=== PATIENT | female | born 1990 | race African-American/Black ===

== ENCOUNTER 2016-10-23 11:07 | Emergency (ER) | payer OTHER ==
[2016-10-23 11:09] VITALS: BP 210/102; PULSE 90; RESP 13; TEMP 98.3; O2SAT 100
--- NOTE | 2016-10-23 11:14 | PD ---
Physical Exam Date Seen by Provider: Oct 23, 2016 Time Seen by Provider: 11:10 MDM Supervised Visit with TERESA: No Narrative Course 26 YO F with complaint of abdominal pain, N/V x 5 days. States took UPT at home, negative. LMP 09/16 Vitals reviewed. Patient seen in triage, awaiting bed placement. Cheyenne Rodriguez Oct 23, 2016 11:14
--- NOTE | 2016-10-23 12:15 | PD ---
HPI Chief Complaint: GI Complaint Time Seen by Provider: 12:05 Travel History International Travel<30 days: No Contact w/Intl Traveler<30days: No Traveled to known affect area: No History of Present Illness HPI 26-year-old female complains of nausea vomiting and diarrhea. Patient states that symptoms started 4 days ago. Patient denies any headache. Patient denies any coughing congestion. Patient denies any chest pain or shortness of breath. Patient denies abdominal pain. Patient denies any dysuria or frequency. Patient denies any vaginal discharge or bleeding. Patient states that she is late for her menstruation period this month. Last menstruation period was September 16, 2016. Patient denies any fever chills. PFSH Past Medical History Diabetes: Yes ?: Unknown LMP: 09/16/16 Social History Tobacco Use: No Allergies-Medications (Allergen,Severity, Reaction): Coded Allergies: No Known Allergies (Unverified , 10/23/16) Reported Meds & Prescriptions Reported Meds & Active Scripts Active Phenergan (Promethazine HCl) 25 Mg Tablet 25 Mg PO Q6H PRN Amlodipine (Amlodipine Besylate) 10 Mg Tab 10 Mg PO DAILY Reported Novolog Inj (Insulin Aspart) 1,000 Unit/10 Ml Vial 0 SQ DIRECTED Sliding Scale as directed. Levemir Inj (Insulin Detemir) 1,000 unit/ 10 ML Vial 30 Units SQ BID Do not mix with any other Insulin. Review of Systems General / Constitutional: No: Fever Eyes: No: Visual changes HENT: No: Headaches Cardiovascular: No: Chest Pain or Discomfort Respiratory: No: Shortness of Breath Gastrointestinal: Positive: Nausea, Vomiting, Diarrhea, No: Abdominal Pain Genitourinary: No: Dysuria Musculoskeletal: No: Pain Skin: No Rash Neurologic: No: Weakness Psychiatric: No: Depression Endocrine: No: Polydipsia Hematologic/Lymphatic: No: Easy Bruising Physical Exam Narrative GENERAL: Well-nourished, well-developed patient. SKIN: Focused skin assessment warm/dry. HEAD: Normocephalic. EYES: No scleral icterus. No injection or drainage. NECK: Supple, trachea midline. No JVD or lymphadenopathy. CARDIOVASCULAR: Regular rate and rhythm without murmurs, gallops, or rubs. RESPIRATORY: Breath sounds equal bilaterally. No accessory muscle use. GASTROINTESTINAL: Abdomen soft, non-tender, nondistended. MUSCULOSKELETAL: No cyanosis, or edema. BACK: Nontender without obvious deformity. No CVA tenderness. Neurologic exam normal. Data Data Last Documented VS Vital Signs Date Time Temp Pulse Resp B/P Pulse Ox O2 Delivery O2 Flow Rate FiO2 10/23/16 17:47 65 16 190/82 100 10/23/16 17:24 Room Air 10/23/16 11:09 98.3 Orders Complete Blood Count With Diff (10/23/16 12:11) Comprehensive Metabolic Panel (10/23/16 12:11) Urinalysis - C+S If Indicated (10/23/16 12:11) Beta Hcg (Quant/Titer) (10/23/16 12:11) Ecg Monitoring (10/23/16 12:11) Iv Access Insert/Monitor (10/23/16 12:11) Sodium Chlor 0.9% 1000 Ml Inj (Ns 1000 M (10/23/16 12:30) Ondansetron Inj (Zofran Inj) (10/23/16 12:30) Sodium Chlor 0.9% 1000 Ml Inj (Ns 1000 M (10/23/16 14:15) Ct Abd/Pel W/O Iv Contrast (10/23/16 14:12) Sodium Chlor 0.9% 1000 Ml Inj (Ns 1000 M (10/23/16 14:15) Clonidine (Catapres) (10/23/16 14:30) Urine Culture (10/23/16 13:45) Sodium Chlor 0.9% 1000 Ml Inj (Ns 1000 M (10/23/16 15:15) Hydralazine Inj (Apresoline Inj) (10/23/16 16:45) Labs Laboratory Tests Test 10/23/16 10/23/16 10/23/16 12:28 13:02 13:45 White Blood Count 8.5 TH/MM3 Red Blood Count 3.79 MIL/MM3 Hemoglobin 11.2 GM/DL Hematocrit 33.2 % Mean Corpuscular Volume 87.7 FL Mean Corpuscular Hemoglobin 29.5 PG Mean Corpuscular Hemoglobin 33.6 % Concent Red Cell Distribution Width 13.9 % Platelet Count 339 TH/MM3 Mean Platelet Volume 8.6 FL Neutrophils (%) (Auto) 55.9 % Lymphocytes (%) (Auto) 37.0 % Monocytes (%) (Auto) 4.0 % Eosinophils (%) (Auto) 2.0 % Basophils (%) (Auto) 1.1 % Neutrophils # (Auto) 4.7 TH/MM3 Lymphocytes # (Auto) 3.1 TH/MM3 Monocytes # (Auto) 0.3 TH/MM3 Eosinophils # (Auto) 0.2 TH/MM3 Basophils # (Auto) 0.1 TH/MM3 CBC Comment DIFF FINAL Differential Comment Sodium Level 139 MEQ/L Potassium Level 4.3 MEQ/L Chloride Level 108 MEQ/L Carbon Dioxide Level 24.0 MEQ/L Anion Gap 7 MEQ/L Blood Urea Nitrogen 41 MG/DL Creatinine 5.37 MG/DL Estimat Glomerular Filtration 12 ML/MIN Rate Random Glucose 145 MG/DL Calcium Level 8.5 MG/DL Total Bilirubin 0.1 MG/DL Aspartate Amino Transf 9 U/L (AST/SGOT) Alanine Aminotransferase 11 U/L (ALT/SGPT) Alkaline Phosphatase 111 U/L Total Protein 6.4 GM/DL Albumin 1.7 GM/DL Human Chorionic Gonadotropin, 1 MIU/ML Quant Urine Color LIGHT-YELLOW Urine Turbidity CLEAR Urine pH 7.5 Urine Specific [place] 1.010 Urine Protein 300 mg/dL Urine Glucose (UA) 300 mg/dL Urine Ketones NEG mg/dL Urine Occult Blood MOD Urine Nitrite NEG Urine Bilirubin NEG Urine Urobilinogen LESS THAN 2.0 MG/DL Urine Leukocyte Esterase NEG Urine RBC 14 /hpf Urine WBC 11 /hpf Urine Squamous Epithelial 3 /hpf Cells Urine Mucus FEW /lpf Microscopic Urinalysis Comment CULTURE INDICATED MDM Medical Decision Making Medical Screen Exam Complete: Yes Emergency Medical Condition: Yes Interpretation(s) Last Impressions Abdomen/Pelvis CT 10/23/16 1412 Signed Impressions: Service Date/Time: Friday, October 23, 2016 15:35 - CONCLUSION: Increased density surrounding the pancreas raising the possibility of pancreatitis. Ulises Becker MD Differential Diagnosis Differential diagnosis including gastroenteritis, dehydration, electrolyte imbalance, gastritis, PUD, appendicitis, cholecystitis, colitis, UTI, pyelonephritis. Narrative Course 26-year-old female with nausea vomiting diarrhea. Normal saline solution 1 L IV bolus. Zofran 4 mg IV. Patient was given normal saline solution 2 more liter IV bolus. Patient was advised to be admitted for IV hydration and workup. Patient refuses admission. CT scan abdomen pelvis shows possibility of an otitis however patient does not have any epigastric or abdominal pain. Clonidine 0.1 mg by mouth given. Hydralazine 10 mg IV given. Diagnosis Primary Impression: Acute renal failure Qualified Code: N17.9 - Acute renal failure, unspecified acute renal failure type Additional Impressions: Gastroenteritis Hypertension Qualified Code: I10 - Essential hypertension Patient Instructions: General Instructions Additional Instructions: Take medications as directed. Follow-up with local physician. Return immediately if patient wishes to be admitted for medical problem. Check blood pressure daily. Scripts Promethazine (Phenergan)25 Mg Ximsan97 Mg PO Q6H PRN (NAUSEA OR VOMITING) #12 TAB Ref 0 Prov:Obi Hayes MD 10/23/16 Amlodipine 10 Mg Tab10 Mg PO DAILY #30 TAB Ref 0 Prov:Obi Hayes MD 10/23/16 Disposition: 01 DISCHARGE HOME Condition: Stable Obi Hayes MD Oct 23, 2016 12:15
[2016-10-23] MEDS ORDERED: LEVEMIR SQ (12:18)
[2016-10-23] MEDS ORDERED: NOVOLOGP2 SQ (12:20)
[2016-10-23] MEDS ORDERED: SODIUM CHLOR 0.9% 1000 ML INJ 1,000 ML IV ONE ×3 (12:30→15:15)
[2016-10-23] MEDS ORDERED: ONDANSETRON HCL 4 MG/2 ML VIAL IV PUSH ONE (12:30)
[2016-10-23 12:48] LABS: AUTOMATED NEUTROPHIL # 4.7 TH/MM3 (1.8-7.7); BASOPHIL # 0.1 TH/MM3 (0-0.2); BASOPHIL % 1.1 % (0.0-2.0); EOSINOPHIL # 0.2 TH/MM3 (0-0.4); HEMATOCRIT 33.2 % (35.0-46.0); HEMO FLAGS DIFF FINAL; LYMPHOCYTE # 3.1 TH/MM3 (1.0-4.8); MEAN CELL VOLUME 87.7 FL (80.0-100.0); MEAN CORPUSCULAR HEMOGLOBIN 29.5 PG (27.0-34.0); MEAN CORPUSCULAR HGB CONC 33.6 % (32.0-36.0); NEUT % 55.9 % (16.0-70.0); PLATELET COUNT 339 TH/MM3 (150-450); RED BLOOD COUNT 3.79 MIL/MM3 (4.00-5.30); RED CELL DISTRIBUTION WIDTH 13.9 % (11.6-17.2); WHITE BLOOD COUNT 8.5 TH/MM3 (4.0-11.0)
[2016-10-23 13:14] VITALS: BP 208/108; PULSE 65; RESP 15; O2SAT 100
[2016-10-23 13:41] LABS: ALT (GPT) 11 U/L (10-53); ANION GAP 7 MEQ/L (5-15); AST (GOT) 9 U/L (15-37); BLOOD UREA NITROGEN 41 MG/DL (7-18); CHLORIDE 108 MEQ/L (98-107); GLOMERULAR FILTRATION RATE 12 ML/MIN (>89); POTASSIUM 4.3 MEQ/L (3.5-5.1); SODIUM (NA) 139 MEQ/L (136-145)
[2016-10-23 13:44] LABS: ALKALINE PHOSPHATASE 111 U/L (45-117); BETA HCG QUANT 1 MIU/ML (0-5); TOTAL BILIRUBIN ADULT 0.1 MG/DL (0.2-1.0)
[2016-10-23] MEDS: SODIUM CHLOR 0.9% 1000 ML INJ 1,000 ML IV ONE (14:15)
[2016-10-23 14:25] VITALS: BP 212/107; PULSE 80; RESP 15; O2SAT 98
[2016-10-23 14:30] LABS: BLOOD, URINE MOD (NEG); COMMENT (UR) CULTURE INDICATED; CULTURE IF INDICATED CULTURE INDICATED; GLUCOSE,URINE 300 mg/dL (NEG); KETONE, URINE NEG (NEG); MUCUS URINE FEW /lpf (OCC); NITRITE,URINE NEG (NEG); PH, URINE 7.5 (5.0-8.5); SQUAMOUS EPITHELIAL CELL URINE 3 /hpf (0-5); URINE COLOR LIGHT-YELLOW (YELLW/STRAW)
[2016-10-23] MEDS ORDERED: cloNIDine HCL 0.1 MG TAB PO ONE (14:30)
--- NOTE | 2016-10-23 16:29 | RADRPT ---
EXAM DATE/TIME: 10/23/2016 15:35 [facility] COMPARISON: No previous studies available for comparison. INDICATIONS : Abdominal pain with nausea, vomiting, and diarrhea. ORAL CONTRAST: No oral contrast ingested. RADIATION DOSE: 7.98 CTDIvol (mGy) MEDICAL HISTORY : Acute renal failure, diabetes SURGICAL HISTORY : None. ENCOUNTER: Initial ACUITY: 4 - 6 days PAIN SCALE: 8/10 LOCATION: back TECHNIQUE: Volumetric scanning of the abdomen and pelvis was performed. Using automated exposure control and ad justment of the mA and/or kV according to patient size, radiation dose was kept as low as reasonably achievable to obtain optimal diagnostic quality images. FINDINGS: LOWER LUNGS: The visualized lower lungs are clear. LIVER: Homogeneous density without lesion. There is no dilation of the biliary tree. No calcified gallston es. SPLEEN: Normal size without lesion. PANCREAS: There is increased density surrounding the pancreas. KIDNEYS: Normal in size and shape. There is no mass, stone, or hydronephrosis. ADRENAL GLANDS: Within normal limits. VASCULAR: There is no aortic aneurysm. BOWEL/MESENTERY: The stomach, small bowel, and colon demonstrate no acute abnormality. There is no free intraperitone al air or fluid. ABDOMINAL WALL: Within normal limits. RETROPERITONEUM: There is no lymphadenopathy. BLADDER: No wall thickening or mass. REPRODUCTIVE: Within normal limits. INGUINAL: There is no lymphadenopathy or hernia. MUSCULOSKELETAL: Within normal limits for patient age. CONCLUSION: Increased density surrounding the pancreas raising the possibility of pancreatitis. Ulises Becker MD on October 23, 2016 at 16:23 Board Certified Radiologist. This report was verified electronically.
[2016-10-23] MEDS ORDERED: hydrALAZINE HCL 20 MG/ML VIAL IV PUSH ONE (16:45)
[2016-10-23] MEDS ORDERED: AMLO10TA2 PO (16:49)
[2016-10-23] MEDS ORDERED: PROM25TA10 PO (16:49)
[2016-10-23 16:57] VITALS: BP 217/103; PULSE 84; RESP 15; O2SAT 100
[2016-10-23 17:24] VITALS: BP 206/103; PULSE 80; RESP 16; O2SAT 100
[2016-10-23 17:47] VITALS: BP 190/82
== END 2016-10-23 17:58 | disposition left against medical advice (07) ==
LOC: NEPD 11:07
DX: N17.9 Acute kidney failure, unspecified (principal); K52.9 Noninfective gastroenteritis and colitis, unspecified; I10 Essential (primary) hypertension; E11.9 Type 2 diabetes mellitus without complications; Z79.4 Long term (current) use of insulin; Z79.899 Other long term (current) drug therapy
CPT/HCPCS: 74176; 80053; 81001; 84702; 85025; 87086; 96361; 96374; 96375; 99285; J0360; J2405; J7030

== ENCOUNTER 2016-11-26 16:31 | Inpatient (IN) | payer OTHER ==
[~2016-11-26] VITALS: Ht 157.5 cm; Wt 59.8 kg
[~2016-11-26 16:31] MED LIST: AMLO10TA2 PO; LEVEMIR SQ; NOVOLOGP2 SQ; PROM25TA10 PO
[2016-11-26 16:33] VITALS: BP 131/72; PULSE 94; RESP 15; TEMP 98.2; O2SAT 98
[2016-11-26 17:55] LABS: BASOPHIL # 0.1 TH/MM3 (0-0.2); EOSINOPHIL # 0.2 TH/MM3 (0-0.4); HEMATOCRIT 22.3 % (35.0-46.0); HEMO FLAGS DIFF FINAL; LYMPH % 35.4 % (9.0-44.0); LYMPHOCYTE # 3.7 TH/MM3 (1.0-4.8); MEAN CELL VOLUME 88.7 FL (80.0-100.0); MEAN CORPUSCULAR HGB CONC 34.9 % (32.0-36.0); MONO % 4.8 % (0.0-8.0); NEUT % 56.8 % (16.0-70.0); PLATELET COUNT 338 TH/MM3 (150-450); RED BLOOD COUNT 2.52 MIL/MM3 (4.00-5.30); RED CELL DISTRIBUTION WIDTH 14.1 % (11.6-17.2); WHITE BLOOD COUNT 10.6 TH/MM3 (4.0-11.0)
[2016-11-26 17:58] LABS: ALT (GPT) 15 U/L (10-53); ANION GAP 9 MEQ/L (5-15); AST (GOT) 11 U/L (15-37); BICARBONATE 18.1 MEQ/L (21.0-32.0); BLOOD UREA NITROGEN 39 MG/DL (7-18); CHLORIDE 110 MEQ/L (98-107); GLOMERULAR FILTRATION RATE 10 ML/MIN (>89); POTASSIUM 5.7 MEQ/L (3.5-5.1); SODIUM (NA) 137 MEQ/L (136-145)
[2016-11-26 18:01] LABS: ALKALINE PHOSPHATASE 129 U/L (45-117); TOTAL BILIRUBIN ADULT 0.1 MG/DL (0.2-1.0)
[2016-11-26] MEDS ORDERED: LISI10TA3 PO (20:21)
[2016-11-26] MEDS ORDERED: CIPR250T52 PO (20:22)
[2016-11-26] MEDS ORDERED: FURO20TA PO (20:22)
--- NOTE | 2016-11-26 20:23 | PD ---
HPI Chief Complaint: Abnormal Results Time Seen by Provider: 20:19 Travel History International Travel<30 days: No Contact w/Intl Traveler<30days: No Traveled to known affect area: No History of Present Illness HPI The patient is a 26-year-old [place] female who presents emergency department for abnormal lab results. 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 The patient has been followed by her nurse practitioner, Lindy Eugene , and a recently had blood work revealing her creatinine is elevated, now greater than 6.0. The patient does complain of myalgias, weakness, nausea, vomiting, decrease in appetite, and edema. The patient was taken lisinopril and Lasix, however, her edema and elevated blood pressure has continued. The patient was advised to come into the emergency department for admission for further evaluation by nephrology for her acute renal failure. The patient denies any acute chest pain or shortness of breath. The patient states her last menstrual cycle was September 16, 2016, however, she had an outpatient serum beta hCG that was -2 days ago. PFSH Past Medical History Diabetes: Yes ?: Not Past Surgical History Narrative Surgical Noncontributory Social History Alcohol Use: No Tobacco Use: No Substance Use: No Allergies-Medications (Allergen,Severity, Reaction): Coded Allergies: No Known Allergies (Unverified , 11/26/16) Reported Meds & Prescriptions Reported Meds & Active Scripts Active Phenergan (Promethazine HCl) 25 Mg Tablet 25 Mg PO Q6H PRN Amlodipine (Amlodipine Besylate) 10 Mg Tab 10 Mg PO DAILY Reported Cipro (Ciprofloxacin HCl) 250 Mg Tab 250 Mg PO BID Furosemide 20 Mg Tab 20 Mg PO DAILY Lisinopril 10 Mg Tab 10 Mg PO DAILY Novolog Inj (Insulin Aspart) 1,000 Unit/10 Ml Vial 0 SQ DIRECTED Sliding Scale as directed. Levemir Inj (Insulin Detemir) 1,000 unit/ 10 ML Vial 30 Units SQ BID Do not mix with any other Insulin. Review of Systems Except as stated in HPI: all other systems reviewed are Neg General / Constitutional: No: Fever Cardiovascular: No: Chest Pain or Discomfort Respiratory: No: Shortness of Breath Gastrointestinal: Positive: Nausea, Vomiting, No: Diarrhea, Abdominal Pain Musculoskeletal: Positive: Myalgias, Weakness, Edema Neurologic: Positive: Weakness, No: Dizziness Physical Exam Narrative GENERAL: Awake, alert, pleasant 26-year-old female who appears her stated age and is in no acute respiratory distress. SKIN: Focused skin assessment warm/dry. HEAD: Atraumatic. Normocephalic. EYES: Pupils equal and round. No scleral icterus. No injection or drainage. ENT: No nasal bleeding or discharge. Mucous membranes pink and moist. NECK: Trachea midline. No JVD. CARDIOVASCULAR: Regular rate and rhythm. Holosystolic murmur noted. RESPIRATORY: No accessory muscle use. Clear to auscultation. Breath sounds equal bilaterally. GASTROINTESTINAL: Abdomen soft, non-tender, nondistended. No rebound tenderness. MUSCULOSKELETAL: No obvious deformities. No clubbing. No cyanosis. Bilateral lower extremity pitting edema. NEUROLOGICAL: Awake and alert. No obvious cranial nerve deficits. Motor grossly within normal limits. Normal speech. PSYCHIATRIC: Appropriate mood and affect; insight and judgment normal. Data Data Last Documented VS Vital Signs Date Time Temp Pulse Resp B/P Pulse Ox O2 Delivery O2 Flow Rate FiO2 11/26/16 20:35 96 18 217/105 100 Room Air 11/26/16 16:33 98.2 Orders Complete Blood Count With Diff (11/26/16 17:08) Comprehensive Metabolic Panel (11/26/16 17:08) Sodium Polysty Sulfate Liq (Kayexalate L (11/26/16 20:30) Electrocardiogram (11/26/16 ) Us Kidney/Renal/Bladder (11/26/16 ) Labs Laboratory Tests Test 11/26/16 17:20 White Blood Count 10.6 TH/MM3 Red Blood Count 2.52 MIL/MM3 Hemoglobin 7.8 GM/DL Hematocrit 22.3 % Mean Corpuscular Volume 88.7 FL Mean Corpuscular Hemoglobin 31.0 PG Mean Corpuscular Hemoglobin 34.9 % Concent Red Cell Distribution Width 14.1 % Platelet Count 338 TH/MM3 Mean Platelet Volume 8.0 FL Neutrophils (%) (Auto) 56.8 % Lymphocytes (%) (Auto) 35.4 % Monocytes (%) (Auto) 4.8 % Eosinophils (%) (Auto) 2.0 % Basophils (%) (Auto) 1.0 % Neutrophils # (Auto) 6.0 TH/MM3 Lymphocytes # (Auto) 3.7 TH/MM3 Monocytes # (Auto) 0.5 TH/MM3 Eosinophils # (Auto) 0.2 TH/MM3 Basophils # (Auto) 0.1 TH/MM3 CBC Comment DIFF FINAL Differential Comment Sodium Level 137 MEQ/L Potassium Level 5.7 MEQ/L Chloride Level 110 MEQ/L Carbon Dioxide Level 18.1 MEQ/L Anion Gap 9 MEQ/L Blood Urea Nitrogen 39 MG/DL Creatinine 6.34 MG/DL Estimat Glomerular Filtration 10 ML/MIN Rate Random Glucose 105 MG/DL Calcium Level 8.6 MG/DL Total Bilirubin 0.1 MG/DL Aspartate Amino Transf 11 U/L (AST/SGOT) Alanine Aminotransferase 15 U/L (ALT/SGPT) Alkaline Phosphatase 129 U/L Total Protein 7.1 GM/DL Albumin 2.1 GM/DL [facility] Medical Decision Making Medical Screen Exam Complete: Yes Emergency Medical Condition: Yes Medical Record Reviewed: Yes Interpretation(s) EKG reveals normal sinus rhythm with a rate in 94. No ischemic changes or ectopy noted. QRS was 81 ms. No peaked T waves noted. Laboratory Tests Test 11/26/16 17:20 White Blood Count 10.6 TH/MM3 Red Blood Count 2.52 MIL/MM3 Hemoglobin 7.8 GM/DL Hematocrit 22.3 % Mean Corpuscular Volume 88.7 FL Mean Corpuscular Hemoglobin 31.0 PG Mean Corpuscular Hemoglobin 34.9 % Concent Red Cell Distribution Width 14.1 % Platelet Count 338 TH/MM3 Mean Platelet Volume 8.0 FL Neutrophils (%) (Auto) 56.8 % Lymphocytes (%) (Auto) 35.4 % Monocytes (%) (Auto) 4.8 % Eosinophils (%) (Auto) 2.0 % Basophils (%) (Auto) 1.0 % Neutrophils # (Auto) 6.0 TH/MM3 Lymphocytes # (Auto) 3.7 TH/MM3 Monocytes # (Auto) 0.5 TH/MM3 Eosinophils # (Auto) 0.2 TH/MM3 Basophils # (Auto) 0.1 TH/MM3 CBC Comment DIFF FINAL Differential Comment Sodium Level 137 MEQ/L Potassium Level 5.7 MEQ/L Chloride Level 110 MEQ/L Carbon Dioxide Level 18.1 MEQ/L Anion Gap 9 MEQ/L Blood Urea Nitrogen 39 MG/DL Creatinine 6.34 MG/DL Estimat Glomerular Filtration 10 ML/MIN Rate Random Glucose 105 MG/DL Calcium Level 8.6 MG/DL Total Bilirubin 0.1 MG/DL Aspartate Amino Transf 11 U/L (AST/SGOT) Alanine Aminotransferase 15 U/L (ALT/SGPT) Alkaline Phosphatase 129 U/L Total Protein 7.1 GM/DL Albumin 2.1 GM/DL Differential Diagnosis Differential diagnosis includes acute renal failure, complication of type 1 diabetes, hyperkalemia, volume overload, peripheral edema. Narrative Course IV was established, labs are drawn and sent, and the patient was placed on cardiac telemetry monitoring and continuous pulse oximetry monitoring. EKG was ordered and interpreted. The patient does continue to make urine, however, her creatinine is elevated greater than 6.0 with elevated potassium of 5.7. The patient was administered Kayexalate. The on-call medical team was paged for admission. The patient will need admission and evaluation by nephrology with ultrasound of the kidneys. The patient agrees and understands. Physician Communication Physician Communication The on-call medical team was paged for admission. I discussed the patient with Dr. Cerrato who agrees with admission. Diagnosis Primary Impression: Acute renal failure Qualified Code: N17.9 - Acute renal failure, unspecified acute renal failure type Additional Impression: Hyperkalemia Admitting Information Admitting Physician Requests: Admit Condition: Stable Emil Padilla MD Nov 26, 2016 20:23
[2016-11-26] MEDS ORDERED: SODIUM POLYSTYRENE SULFONATE SUSP 15 GM/60 ML CUP PO ONE (20:30)
[2016-11-26 20:35] VITALS: BP 217/105; PULSE 96; RESP 18; O2SAT 100
[2016-11-26] MEDS ORDERED: SODIUM CHLORIDE 0.9% FLUSH 10 ML FLUSH IV FLUSH PRN (21:00)
[2016-11-26] MEDS ORDERED: NALOXONE HCL 0.4 MG/ML AMP IV PRN (21:00)
[2016-11-26] MEDS: SODIUM CHLORIDE 0.9% FLUSH 10 ML FLUSH IV FLUSH SCH (21:15)
[2016-11-26 21:25] VITALS: BP 196/103; PULSE 99; RESP 18; O2SAT 98
[2016-11-26 21:31] VITALS: BP 178/99; PULSE 97; RESP 18; O2SAT 98
--- NOTE | 2016-11-26 21:39 | RADRPT ---
EXAM DATE/TIME: 11/26/2016 21:09 [facility] COMPARISON: No previous studies available for comparison. INDICATIONS : Abnormal labs. MEDICAL HISTORY : Hypertension. Diabetes mellitus type 1. Renal disease. SURGICAL HISTORY : None. ENCOUNTER: Initial ACUITY: 1 day PAIN SCORE: 0/10 LOCATION: Bilateral flank. MEASUREMENTS: RIGHT KIDNEY: 13.7 x 5.5 x 5.8 cm LEFT KIDNEY: 13.2 x 6.5 x 6.0 cm FINDINGS: RIGHT KIDNEY: Renal cortex is normal in thickness and borderline increased echotexture. No hydronephrosis, stone, or mass. Tiny simple cyst upper pole measures 9 x 7 x 7 mm. LEFT KIDNEY: Renal cortex is normal in thickness and borderline increased echotexture. No hydronephrosis, stone, or mass. BLADDER: Within normal limits given the degree of distension. CONCLUSION: 1. Tiny cysts right kidney. 2. Kidneys are borderline echogenic which can be seen with medical renal disease. Seng Peña MD on November 26, 2016 at 21:36 Board Certified Radiologist. This report was verified electronically.
[2016-11-26] MEDS ORDERED: LABETALOL HCL 100 MG/20 ML VIAL IV PUSH ONE (21:45)
[2016-11-26 21:47] VITALS: BP 168/92; PULSE 90; RESP 16; O2SAT 98
[2016-11-26 22:30] VITALS: BP 198/98; PULSE 100; RESP 18; TEMP 98.5; O2SAT 100
[2016-11-27] VITALS (11 sets, daily range): BP systolic 172–212; BP diastolic 86–106; PULSE 90–104; RESP 14–20; TEMP 97.6–98.9; O2SAT 93–100
[2016-11-27 00:29] LABS: BICARBONATE 22.1 MEQ/L (21.0-32.0); POTASSIUM 5.1 MEQ/L (3.5-5.1)
[2016-11-27] MEDS ORDERED: cloNIDine HCL 0.1 MG TAB PO ONE (00:30)
[2016-11-27] MEDS ORDERED: ALPRAZolam 0.25 MG TAB PO ONE (00:30)
[2016-11-27] MEDS ORDERED: ALPRAZolam 0.5 MG TAB PO ONE (01:00)
[2016-11-27] MEDS ORDERED: PILL SPLITTER OTHER ONE (01:00)
--- NOTE | 2016-11-27 03:05 | HHI.HP ---
HPI Service [facility] Hospitalists Primary Care Physician Vu Manley DO Admission Diagnosis acute renal failure, hyperkalemia, diabetes Diagnoses: (1) Acute renal failure Chief Complaint: Abnormal lab tests Travel History International Travel<30 Days: No Contact w/Intl Traveler <30 Da: No Traveled to Known Affected Are: No History of Present Illness Written by Rama Barnett, acting as scribe for Dr. Cerrato on 11/27/16 at 03:24. Sent from PCP to ED because of "abnormal blood work" March 2016 was told at [facility] in [facility] that she had renal failure They mentioned doing a renal biopsy in March 2016 but it was never done Denies fever, diarrhea, black or red stool, hematuria, dysuria, oliguria, abdominal pain Complains of nausea, vomiting, diaphoresis with eating any foods, for the last two weeks, reports drowsiness No close contacts with nausea or vomiting She has not been on bp medications for about two weeks Was on amlodipine, furosemide, and lisinopril Reports that she has been put on transplant list by her primary care provider DANE Núñez . Review of Systems Except as stated in HPI: all other systems reviewed are Neg Past Family Social History Past Medical History Type 1 diabetes mellitus Seizures r/t hypoglycemia CAD, CHF, asthma, copd, liver problems, DVT, PE, CVA, thyroid problems . Past Surgical History Breast cyst - needle aspiration . Reported Medications Has been on Ciprofloxacin for a few days Reported Meds & Active Scripts Active Phenergan (Promethazine HCl) 25 Mg Tablet 25 Mg PO Q6H PRN Amlodipine (Amlodipine Besylate) 10 Mg Tab 10 Mg PO DAILY Reported Cipro (Ciprofloxacin HCl) 250 Mg Tab 250 Mg PO BID Furosemide 20 Mg Tab 20 Mg PO DAILY - last dose was two nights ago - was given Furosemide about a week and a half ago Lisinopril 10 Mg Tab 10 Mg PO DAILY Novolog Inj (Insulin Aspart) 1,000 Unit/10 Ml Vial 0 SQ DIRECTED Sliding Scale as directed. Levemir Inj (Insulin Detemir) 1,000 unit/ 10 ML Vial 30 Units SQ BID Do not mix with any other Insulin. . Allergies: Coded Allergies: No Known Allergies (Unverified , 11/26/16) Active Ordered Medications Current Medications Sodium Polystyrene Sulfonate (Kayexalate Liq) 30 gm ONCE ONCE PO Last administered on 11/26/16 20:35; Start 11/26/16 at 20:30; Stop 11/26/16 at 20:31 ; Status DC Sodium Chloride (NS Flush) 2 ml UNSCH PRN IV FLUSH FLUSH AFTER USING IV ACCESS ; Start 11/26/16 at 21:00 Sodium Chloride (NS Flush) 2 ml BID IV FLUSH Last administered on 11/26/16 21: 15; Start 11/26/16 at 21:00 Naloxone HCl (Narcan Inj) 0.4 mg UNSCH PRN IV SEE LABEL COMMENTS; Start at 21:00 Labetalol HCl (Trandate Inj) 20 mg ONCE ONCE IV PUSH Last administered on 11/26 21:36; Start 11/26/16 at 21:45; Stop 11/26/16 at 21:46; Status DC Clonidine (Catapres) 0.1 mg ONCE ONCE PO Last administered on 11/27/16 01:13 ; Start 11/27/16 at 00:30; Stop 11/27/16 at 00:33; Status DC Alprazolam (Xanax) 0.125 mg ONCE ONCE PO ; Start 11/27/16 at 00:30; Stop at 00:31; Status Cancel Alprazolam (Xanax) 0.125 mg ONCE ONCE PO Last administered on 11/27/16 01:13 ; Start 11/27/16 at 01:00; Stop 11/27/16 at 01:01; Status DC Miscellaneous (Pill Splitter) 1 ea ONCE ONCE OTHER ; Start 11/27/16 at 01:00; Stop 11/27/16 at 01:01; Status DC . Family History Aunt with pancreatic CA Aunt with PE Mother with DVT, thyroid nodules Great grandmother with ESRD . Social History Tobacco: denies Alcohol: denies Illicit drugs: denies . Physical Exam Vital Signs Vital Signs Date Time Temp Pulse Resp B/P Pulse Ox O2 Delivery O2 Flow Rate FiO2 11/27/16 02:51 97.6 102 18 176/86 100 11/27/16 00:05 98.2 104 17 207/105 100 11/26/16 22:30 98.5 100 18 198/98 100 11/26/16 21:47 90 16 168/92 98 Room Air 11/26/16 21:31 97 18 178/99 98 Room Air 11/26/16 21:25 99 18 196/103 98 Room Air 11/26/16 20:35 96 18 217/105 100 Room Air 11/26/16 16:33 98.2 94 15 131/72 98 Physical Exam GENERAL: This is a well-nourished, well-developed patient, in no apparent distress. SKIN: No rashes, ecchymoses or lesions. Cool and dry. HEAD: Atraumatic. Normocephalic. EYES: No scleral icterus. No injection or drainage. ENT: Nose without bleeding, purulent drainage. NECK: Trachea midline. No JVD or lymphadenopathy. CARDIOVASCULAR: Regular rate and rhythm without murmurs, gallops, or rubs. 1+ lower extremity edema from mid-madden to feet bilaterally. RESPIRATORY: Clear to auscultation. Breath sounds equal bilaterally. No wheezes , rales, or rhonchi. GASTROINTESTINAL: Abdomen soft, non-tender, nondistended. No guarding. MUSCULOSKELETAL: Extremities without clubbing, cyanosis, or edema. No calf tenderness. NEUROLOGICAL: Awake and alert. Motor and sensory grossly within normal limits. Normal speech. . Laboratory Laboratory Tests Test 11/26/16 11/26/16 17:20 23:34 White Blood Count 10.6 Red Blood Count 2.52 Hemoglobin 7.8 Hematocrit 22.3 Mean Corpuscular Volume 88.7 Mean Corpuscular Hemoglobin 31.0 Mean Corpuscular Hemoglobin 34.9 Concent Red Cell Distribution Width 14.1 Platelet Count 338 Mean Platelet Volume 8.0 Neutrophils (%) (Auto) 56.8 Lymphocytes (%) (Auto) 35.4 Monocytes (%) (Auto) 4.8 Eosinophils (%) (Auto) 2.0 Basophils (%) (Auto) 1.0 Neutrophils # (Auto) 6.0 Lymphocytes # (Auto) 3.7 Monocytes # (Auto) 0.5 Eosinophils # (Auto) 0.2 Basophils # (Auto) 0.1 CBC Comment DIFF FINAL Differential Comment Sodium Level 137 138 Potassium Level 5.7 5.1 Chloride Level 110 109 Carbon Dioxide Level 18.1 22.1 Anion Gap 9 7 Blood Urea Nitrogen 39 45 Creatinine 6.34 6.37 Estimat Glomerular Filtration 10 10 Rate Random Glucose 105 345 Calcium Level 8.6 7.9 Total Bilirubin 0.1 Aspartate Amino Transf 11 (AST/SGOT) Alanine Aminotransferase 15 (ALT/SGPT) Alkaline Phosphatase 129 Total Protein 7.1 Albumin 2.1 Result Diagram: 11/26/16 1720 11/26/16 2334 Imaging Last Impressions Renal Ultrasound 11/26/16 0000 Signed Impressions: Service Date/Time: Saturday, November 26, 2016 21:09 - CONCLUSION: 1. Tiny cysts right kidney. 2. Kidneys are borderline echogenic which can be seen with medical renal disease. Seng Peña MD . Assessment and Plan Problem List: (1) Acute renal failure ICD Code: N17.9 Status: Acute Assessment and Plan 26 y/o female with acute renal failure Acute Renal Failure - Kidney ultrasound showed tiny cysts right kidney. Kidneys are borderline echogenic which can be seen with medical renal disease. - We will need to obtain medical records from [facility] in [place] from March 2016 admission - Will need to obtain records from DANE Núñez - patient's primary healthcare provider re hepatitis profile, hiv testing, hypercoagulable state profile, pheochromo etc - IV fluid hydration with NS at 84 cc/hr - repeat BMP and follow trends in renal indices - consult nephrology - assistance appreciated Type 1 diabetes mellitus - Accu-Cheks before meals and at bedtime with medium dose NovoLog sliding scale coverage - Monitor trends and blood glucose and adjust treatment as indicated - Hypoglycemia protocol DVT prophylaxis - Heparin 5000 units subcutaneous every 8 hours . This note was transcribed by munir [Rama Barnett]. I, Dr. Humera Cerrato personally performed the history, physical exam, and medical decision making; and confirmed the accuracy of the information in the transcribed note. Authenticated by Dr. Humera Cerrato on 11/27/16 at 03:24. Discussed Condition With ER physician Physician Certification 2 Midnight Certification Type: Admission for Inpatient Services Order for Inpatient Services The services are ordered in accordance with Medicare regulations or non- Medicare payer requirements, as applicable. In the case of services not specified as inpatient-only, they are appropriately provided as inpatient services in accordance with the 2-midnight benchmark. Estimated LOS (days): 3 days is the estimated time the patient will need to remain in the hospital, assuming treatment plan goals are met and no additional complications. Post-Hospital Plan: Home Problem Qualifiers (1) Acute renal failure: Qualified Code: N17.9 - Acute renal failure, unspecified acute renal failure type Rama Barnett Nov 27, 2016 03:05 Humera Cerrato MD Nov 27, 2016 09:26
[2016-11-27] MEDS ORDERED: GLUCAGON 1 MG/ML VIAL OTHER PRN (04:00)
[2016-11-27] MEDS ORDERED: SODIUM CHLOR 0.45% 1000 ML INJ 1,000 ML IV SCH (04:00)
[2016-11-27] MEDS: HEPARIN SODIUM - SQ 10,000 UNITS/ML VIAL SQ SCH ×2 (06:16→22:07)
[2016-11-27] MEDS: INSULIN ASPART SUPPLEMENTAL SCALE SQ SCH ×4 (06:19→21:00)
[2016-11-27 07:50] LABS: AUTOMATED NEUTROPHIL # 4.4 TH/MM3 (1.8-7.7); BASOPHIL # 0.1 TH/MM3 (0-0.2); BASOPHIL % 1.1 % (0.0-2.0); EOSINOPHIL # 0.2 TH/MM3 (0-0.4); HEMATOCRIT 24.3 % (35.0-46.0); HEMO FLAGS DIFF FINAL; LYMPH % 35.9 % (9.0-44.0); LYMPHOCYTE # 2.9 TH/MM3 (1.0-4.8); MEAN CELL VOLUME 89.2 FL (80.0-100.0); MEAN CORPUSCULAR HEMOGLOBIN 29.1 PG (27.0-34.0); MEAN CORPUSCULAR HGB CONC 32.6 % (32.0-36.0); MONO % 7.1 % (0.0-8.0); NEUT % 53.9 % (16.0-70.0); PLATELET COUNT 262 TH/MM3 (150-450); RED BLOOD COUNT 2.72 MIL/MM3 (4.00-5.30); RED CELL DISTRIBUTION WIDTH 14.2 % (11.6-17.2); WHITE BLOOD COUNT 8.2 TH/MM3 (4.0-11.0)
[2016-11-27 07:57] LABS: APTT (PATIENT) 25.2 SEC (24.3-30.1); INTERNATIONAL NORMALIZED RATIO 0.9 RATIO; PROTHROMBIN TIME - PATIENT 10.3 SEC (9.8-11.6)
[2016-11-27] MEDS: SODIUM CHLORIDE 0.9% FLUSH 10 ML FLUSH IV FLUSH SCH ×2 (08:33→21:37)
[2016-11-27 08:34] LABS: BICARBONATE 19.5 MEQ/L (21.0-32.0); POTASSIUM 4.3 MEQ/L (3.5-5.1)
--- NOTE | 2016-11-27 08:55 | HHI.PR ---
Subjective Remarks Follow up for acute renal failure. The patient reports feeling well, has no medical complaints including no lightheadedness, dizziness, chest pain, shortness of breath, or abdominal complaints. She reports she is still making a good amount of urine. She believes her baseline Creatinine is around 6. She has not been set up with a rn pediatric icu in the area, but now lives permanently in [place]. She was only seen at tertiary care center (either [facility] or [facility] ) back in 2002 when she was first diagnosed with renal failure. Her PCP Dr. Vu Manley and Lindy VELA has been following her care recently and reportedly have her on the transplant list. Objective Vitals Vital Signs Date Time Temp Pulse Resp B/P Pulse Ox O2 Delivery O2 Flow Rate FiO2 11/27/16 07:59 98.9 99 16 191/99 99 11/27/16 07:12 101 11/27/16 02:51 97.6 102 18 176/86 100 11/27/16 00:05 98.2 104 17 207/105 100 11/26/16 22:30 98.5 100 18 198/98 100 11/26/16 21:47 90 16 168/92 98 Room Air 11/26/16 21:31 97 18 178/99 98 Room Air 11/26/16 21:25 99 18 196/103 98 Room Air 11/26/16 20:35 96 18 217/105 100 Room Air 11/26/16 16:33 98.2 94 15 131/72 98 I/O 11/26/16 11/26/16 11/26/16 11/27/16 11/27/16 11/27/16 07:00 15:00 23:00 07:00 15:00 23:00 Intake Total 250 ml Balance 250 ml Intake Oral 250 ml # Voids 2 Result Diagram: 11/27/16 0700 11/27/16 0700 Imaging Last Impressions Renal Ultrasound 11/26/16 0000 Signed Impressions: Service Date/Time: Saturday, November 26, 2016 21:09 - CONCLUSION: 1. Tiny cysts right kidney. 2. Kidneys are borderline echogenic which can be seen with medical renal disease. Seng Peña MD Objective Remarks GENERAL: Well-nourished, well-developed pleasant young AA female patient in [facility]. SKIN: Warm and dry. No rash. HEENT: Normocephalic. Atraumatic.Pupils equal and round. Mucous membranes pink and moist. NECK: Supple. Trachea midline. CARDIOVASCULAR: Regular rate and rhythm. S1, S2 noted. No murmur appreciated. RESPIRATORY: No accessory muscle use. Clear to auscultation. Breath sounds equal bilaterally. GASTROINTESTINAL: Abdomen soft, non-tender, nondistended. Normoactive bowel sounds x4. MUSCULOSKELETAL: No obvious deformities. 1+ BLE edema. NEUROLOGICAL: Awake and alert. No obvious cranial nerve deficits. Motor grossly within normal limits. Normal speech. PSYCHIATRIC: Appropriate mood and affect; insight and judgment normal. Medications and IVs Current Medications Medications (Trade) Dose Ordered Sig/Jerri Route Start Time Stop Time Status Last Admin (NS Flush) 2 ml UNSCH PRN IV FLUSH 11/26/16 21:00 (NS Flush) 2 ml BID IV FLUSH 11/26/16 21:00 11/26/16 21:15 (Narcan Inj) 0.4 mg UNSCH PRN IV 11/26/16 21:00 (D50w (Vial) Inj) 50 ml UNSCH PRN IV 11/27/16 04:00 (Glucagon Inj) 1 mg UNSCH PRN OTHER 11/27/16 04:00 Heparin Sodium (Porcine) 5000 units 5,000 units Q8HR SQ 11/27/16 06:00 11/27/16 06:16 (1/2 NS 1000 ml Inj) 1,000 ml @ 84 mls/hr [id number] IV 11/27/16 04:00 11/27/16 16:00 11/27/16 04:30 (Catapres) 0.1 mg Q6H PRN PO 11/27/16 09:00 A/P Problem List: (1) Acute renal failure ICD Code: N17.9 Status: Acute Assessment and Plan 26-year-old female with history of CKD unknown stage, presents after outpatient labs revealed acute on chronic renal failure. Acute Renal Failure, on CKD, unknown baseline staging (patient believes recent baseline creatinine around 6) - Renal U/S showed tiny cysts right kidney. Kidneys are borderline echogenic which can be seen with medical renal disease. - Will obtain medical records from [facility] in [place] from March 2016 admission - Will obtain records from Lindy Valorie, MARKETING TECHNOLOGIST - patient's primary healthcare provider - Continue IV fluid hydration with NS at 84 cc/hr - repeat BMP and follow trends in renal indices - consult nephrology - assistance appreciated Type 1 diabetes mellitus - continue patient's Levemir 30u bid - Accu-Cheks and cover with medium dose NovoLog sliding scale coverage - Monitor trends and blood glucose and adjust treatment as indicated - Hypoglycemia protocol Hypertensive Urgency secondary to Accelerated Hypertension: patient's BP consistently elevated, as high as 217/105 - continue patient's Norvasc - add clonidine prn DVT prophylaxis - Heparin 5000 units subcutaneous every 8 hours Problem Qualifiers (1) Acute renal failure: Qualified Code: N17.9 - Acute renal failure, unspecified acute renal failure type Yu Matute PA-C Nov 27, 2016 8:55 am
[2016-11-27] MEDS ORDERED: INSULIN DETEMIR 100 UNITS/ML VIAL SQ SCH (09:00)
[2016-11-27] MEDS: cloNIDine HCL 0.1 MG TAB PO PRN (09:40)
[2016-11-27] MEDS ORDERED: VANCOMYCIN INJ 1,000 MG in SODIUM CHLOR 0.9% 250 ML INJ 250 ML IV SCH (12:00)
[2016-11-27] MEDS: LABETALOL HCL 100 MG TAB PO SCH ×2 (12:32→19:39)
--- NOTE | 2016-11-27 13:09 | MB ---
cc: MANUEL MENA MD DATE OF CONSULTATION: 11/27/2016 REASON FOR CONSULTATION Very high BUN and creatinine for evaluation. HISTORY OF PRESENT ILLNESS This is a 26-year-old female with a past medical history of hypertension, history of chronic kidney disease, diabetes mellitus, seizure disorder, who was sent to the hospital by her primary physician because of very high BUN and creatinine. The patient was told in [place], [place] in March 2016 when she was admitted in the hospital that her kidney function was very bad and she will need a kidney biopsy, but it was not done and she was discharged. The patient moved here and now has a new primary physician. She went there yesterday and she was told that her blood tests are very bad and she will need to start on dialysis, and has to go to the hospital. She had nausea and vomiting 2 weeks ago but her nausea and vomiting has improved. Her appetite is now normal. She has no shortness of breath. She is still passing urine. She noticed more swelling in her arms and legs and puffiness in the face. There is no dysuria or hematuria. There is no history of renal stones. Denies taking any nonsteroidal anti-inflammatory drugs. Her creatinine on this admission is 6.3. She had creatinine of 5.3 about a month ago when she was here in the emergency department. The patient has not been seen by a auto emissions technician here in this area. The patient's mother is here from [place] and she wants to take the patient back there after she is started on dialysis. PAST MEDICAL HISTORY 1. Hypertension. 2. Diabetes mellitus. 3. Seizure disorder. 4. Chronic kidney disease. PAST SURGICAL HISTORY History of breast cyst with needle aspiration. REVIEW OF SYSTEMS The patient has generalized weakness, feeling tired. There is no nausea or vomiting now. She has generalized edema, swelling of the arms and legs and puffiness of the face. There is no shortness of breath. No chest pain. No palpitations. No abdominal pain. No history of diarrhea. No dysuria or hematuria. There is no history of renal stone. SOCIAL HISTORY There is no history of smoking or alcoholism. FAMILY HISTORY Her great-grandmother has renal disease and on dialysis. Her mother's cousin is on dialysis. ALLERGIES She has no known drug allergies. MEDICATIONS Currently she is on the following medications: 1. Normal saline at 84 an hour. 2. Levemir 30 units subcu b.i.d. 3. Amlodipine 10 mg once a day. 4. Heparin 5000 subcu q.8h. 5. Insulin sliding scale. 6. Narcan as needed. 7. Catapres as needed. PHYSICAL EXAMINATION GENERAL: The patient is awake and alert. She is not in acute distress. VITAL SIGNS: The last blood pressure is 191/93, temperature 98.9. Oxygen saturation 99-100% on room air. HEENT: Pupils equally reacting to light. Non-icteric sclera. Conjunctiva pale. NECK: Supple. JVD is not elevated. LUNGS: The patient has bilateral good air entry with occasional wheezing. HEART: S1, S2, regular rhythm. ABDOMEN: Distended, soft, lax. There is no tenderness. Bowel sounds positive. EXTREMITIES: Bilateral 2+ edema. INVESTIGATIONS WBC count 8.2, hemoglobin 7.9, platelet count 262. INR is 0.9. Sodium 138, potassium 4.3, chloride 109, bicarb 19.5, BUN 44, creatinine 6.0, glucose 170, calcium 8.2. Urinalysis is showing protein of 300. IMAGING STUDIES The patient had an ultrasound of the kidneys done which shows that she has normal size kidneys with a small cyst in the right kidney, some increased echogenicity. ASSESSMENT 1. Chronic kidney disease, advanced renal failure. 2. Hypertension uncontrolled. 3. Diabetes mellitus. 4. Anemia. 5. History of seizure disorder. PLAN The patient has advanced renal disease and her GFR has been less than 15 since October at least. The patient is probably end-stage but will need more work-up for her renal disease including serology and possibly a biopsy of the kidney but she will need to start on dialysis. I did discuss with the mother and the patient about hemodialysis and peritoneal dialysis. They are more inclined towards hemodialysis, but she will need to start on hemodialysis in the beginning and then A-V fistula or PD catheter depending on what they decide. The mother wants to take the patient to [place] which she can be done later on. I will get the Perm-Cath today and start her on dialysis from tomorrow and send the serology and possible kidney biopsy. Thank you for the consultation. I will follow the patient while she is in the hospital. Derrick Q. Jumani, MD AQJ/BT /11:33 AM /12:41 PM
[2016-11-27] MEDS ORDERED: fentaNYL CITRATE 250 MCG/5 ML AMP ONE (15:23)
[2016-11-27] MEDS ORDERED: MIDAZOLAM HCL 5 MG/5 ML VIAL ONE (15:23)
[2016-11-27] MEDS ORDERED: LIDOCAINE 1%/EPINEPHrine 1:100,000 SOLN 20 ML VIAL ONE (15:40)
[2016-11-27] MEDS ORDERED: SODIUM CHLORIDE 0.9% FLUSH 10 ML FLUSH IVF PRN (16:15)
[2016-11-27] MEDS ORDERED: HEPARIN SODIUM - IV 2,000 UNITS/2 ML VIAL IV FLUSH PRN (16:15)
--- NOTE | 2016-11-27 16:15 | PD.RAD ---
Post Procedure Progress Note Pre Procedure Diagnosis: (1) Acute renal failure Post Procedure Diagnosis: (1) Acute renal failure Procedure Date: Nov 27, 2016 Supervising Radiologist: Chandler Reilly Proceduralist/Assist: Shanna Gar, RT(R)(CV), Porsha Faulkner RT(R)() Anesthesia: Conscious Sedation Plan of Activity Patient to Unit: Nursing Unit Patient Condition: Good Additional Comments: Placed righ IJ HD cath See PACS Report for procedural detail/treatment Chandler Reilly MD Nov 27, 2016 16:15
[2016-11-27] MEDS ORDERED: SODIUM CHLOR 0.9% 1000 ML INJ 1,000 ML IV PRN ×3 (16:22)
[2016-11-27] MEDS ORDERED: ACETAMINOPHEN 325 MG TAB PO PRN (16:30)
[2016-11-27] MEDS ORDERED: EPOETIN ALFA 10,000 UNITS/ML VIAL IV PRN (16:30)
[2016-11-27] MEDS ORDERED: SODIUM CHLORIDE 0.9% FLUSH 10 ML FLUSH IV FLUSH PRN (16:30)
[2016-11-27] MEDS ORDERED: diphenhydrAMINE HCL 25 MG CAP PO PRN (16:30)
[2016-11-27] MEDS ORDERED: HEPARIN SODIUM - IV 10,000 UNITS/10 ML VIAL IVF PRN (16:30)
[2016-11-27] MEDS ORDERED: NITROGLYCERIN 0.4 MG SL 25 TABS/BTL SL PRN (16:30)
[2016-11-27] MEDS ORDERED: MANNITOL 12.5 GM/50 ML VIAL IV PRN (16:30)
[2016-11-27] MEDS ORDERED: GELATIN 12 MM/7 MM FOAM TOP PRN (16:30)
[2016-11-27] MEDS ORDERED: ALBUMIN HUMAN 25% 25 GM/100 ML BAGP IV PRN (16:30)
[2016-11-27] MEDS: DEXTROSE 50% IN WATER 50 ML VIAL(D50) IV PRN ×2 (17:05→18:28)
[2016-11-27] MEDS: ONDANSETRON HCL 4 MG/2 ML VIAL IV PRN (17:16)
--- NOTE | 2016-11-27 17:48 | RADRPT ---
EXAM DATE/TIME: 11/27/2016 15:42 [facility] COMPARISON: No previous studies available for comparison. INDICATIONS : Ptient is in need of placement of a righ sided Permacath for dialysis. MEDICAL HISTORY : History of acute on chronic renal failure, HTN, DM, CAD, CHF, COPD, DVT, PE, CVA, seizures, asthma. SURGICAL HISTORY : History of breast needle biopsy. ENCOUNTER: Initial ACUITY: 3 months PAIN SCORE: 10/10 LOCATION: lower back FLUORO TIME: 0.3 minutes IMAGE SERIES: 0 SEDATION TIME: 30 minutes ACCESS: Right internal jugular vein SEDATION: 1.) 2 mg midazolam (Versed) IV 2.) 100 mcg fentanyl (Sublimaze) IV Prophylactic antibiotics were administered with appropriate pre-procedure timing. Vancomycin within 2 hours of procedure, Ancef (or alternative) within 1 hour of procedure. DEVICE: 1. 15 Bangladeshi dual lumen 19 cm Alvarado II Plus catheter PROCEDURE : 1. Ultrasound-guided venipuncture. 2. PermaCath placement. 3. Conscious sedation with continuous EKG and oximetry monitoring. The risks, benefits and alternatives to the procedure were explained and verbal and written consent w as obtained. The site was prepped in sterile fashion. Full sterile technique was used, including ca p, mask, sterile gloves and gown and a large sterile sheet. Hand hygiene and 2% chlorhexidine and/or betadine/alcohol prep was utilized per protocol for cutaneous antisepsis. The skin and subcutaneous tissues were infiltrated with local anesthetic solution. With ultrasound and fluoroscopic guidance a dermatotomy was created over the prescribed vein. A micr opuncture set was used to access the targeted vein and serial dilatation was performed to accept the prescribed length catheter. A subcutaneous tunnel was created in a retrograde fashion the catheter w as pulled through the tunnel. The catheter was flushed and assembled and locked with heparin. The c atheter was sutured in place. Conscious sedation was performed with the prescribed dosages and duration as above in the presence of an independent trained radiology nurse to assist in the monitoring of the patient. EKG and oximetry remained stable throughout the procedure. The patient tolerated the procedure well and there were n o complications. The patient was sent to post anesthesia recovery in stable condition. CONCLUSION: Uncomplicated PermaCath placement as above. Chandler Reilly MD on November 27, 2016 at 17:46 Board Certified Radiologist. This report was verified electronically.
[2016-11-27] MEDS ORDERED: ACETAMINOPHEN/HYDROcodone 325 MG/5 MG TAB PO PRN (18:45)
[2016-11-27] MEDS: INSULIN DETEMIR 100 UNITS/ML VIAL SQ SCH (19:00)
--- NOTE | 2016-11-27 20:59 | EKG ---
Date Performed: 11/26/2016 Time Performed: 20:41:47 PTAGE: 26 years EKG: Sinus rhythm NORMAL ECG NO PREVIOUS TRACING DOCTOR: Maral Owens Interpretating Date/Time 11/27/2016 20:57:51
[2016-11-27] MEDS: MORPHINE SULFATE 4 MG/ML INJ IV PRN (21:37)
[2016-11-28] VITALS (10 sets, daily range): BP systolic 173–217; BP diastolic 84–107; PULSE 72–96; RESP 16–18; TEMP 98.2–98.8; O2SAT 95–100
[2016-11-28] MEDS: ONDANSETRON HCL 4 MG/2 ML VIAL IV PRN ×2 (01:46→13:50)
[2016-11-28] MEDS: MORPHINE SULFATE 4 MG/ML INJ IV PRN (02:11)
[2016-11-28] MEDS: HEPARIN SODIUM - SQ 10,000 UNITS/ML VIAL SQ SCH ×3 (06:11→21:16)
[2016-11-28] MEDS: INSULIN ASPART SUPPLEMENTAL SCALE SQ SCH ×4 (07:00→21:00)
[2016-11-28] MEDS: LABETALOL HCL 100 MG TAB PO SCH ×2 (08:40→21:15)
[2016-11-28] MEDS: SODIUM CHLORIDE 0.9% FLUSH 10 ML FLUSH IV FLUSH SCH ×2 (08:41→21:20)
[2016-11-28] MEDS: INSULIN DETEMIR 100 UNITS/ML VIAL SQ SCH ×2 (09:34→21:00)
--- NOTE | 2016-11-28 11:04 | HHI.PR ---
Subjective Remarks Follow up for acute renal failure. The patient reports pain at the site of HD catheter placed yesterday. She reports multiple episodes of nausea and vomiting overnight which she believes is related to the pain medications. She states she has done well with IV dilaudid in the past. Denies fevers/chills, abdominal pain , or diarrhea. She is looking forward to starting dialysis. She prefers to go home tomorrow if medically cleared. Objective Vitals Vital Signs Date Time Temp Pulse Resp B/P Pulse Ox O2 Delivery O2 Flow Rate FiO2 11/28/16 10:13 21 11/28/16 08:13 98.5 96 18 195/97 98 11/28/16 04:06 93 11/28/16 03:29 98.4 72 18 186/88 95 11/28/16 02:17 12 11/28/16 00:34 98.8 95 18 173/84 97 11/28/16 00:16 95 11/27/16 21:10 91 11/27/16 20:40 12 11/27/16 20:18 98.4 91 18 172/92 98 11/27/16 19:33 21 11/27/16 16:50 90 20 189/101 95 11/27/16 16:35 92 20 179/88 96 11/27/16 16:20 98.0 96 20 177/101 93 11/27/16 13:15 100 212/106 11/27/16 11:42 98.4 90 14 210/100 99 I/O 11/27/16 11/27/16 11/27/16 11/28/16 11/28/16 11/28/16 07:00 15:00 23:00 07:00 15:00 23:00 Intake Total 250 ml 600 ml Balance 250 ml 600 ml Intake Oral 250 ml IV Total 600 ml # Voids 2 Result Diagram: 11/27/16 0700 11/27/16 0700 Imaging Last Impressions Catheter Placement X-Ray 11/27/16 0000 Signed Impressions: Service Date/Time: Sunday, November 27, 2016 15:42 - CONCLUSION: Uncomplicated PermaCath placement as above. Chandler Reilly MD Renal Ultrasound 11/26/16 0000 Signed Impressions: Service Date/Time: Saturday, November 26, 2016 21:09 - CONCLUSION: 1. Tiny cysts right kidney. 2. Kidneys are borderline echogenic which can be seen with medical renal disease. Seng Peña MD Objective Remarks GENERAL: Well-nourished, well-developed pleasant young AA female patient in [place]. SKIN: Warm and dry. No rash. Right upper chest HD catheter in place, no surrounding erythema, slightly tender. HEENT: Normocephalic. Atraumatic.Pupils equal and round. Mucous membranes pink and moist. NECK: Supple. Trachea midline. CARDIOVASCULAR: Regular rate and rhythm. S1, S2 noted. No murmur appreciated. RESPIRATORY: No accessory muscle use. Clear to auscultation. Breath sounds equal bilaterally. GASTROINTESTINAL: Abdomen soft, non-tender, nondistended. Normoactive bowel sounds x4. MUSCULOSKELETAL: No obvious deformities. Trace BLE edema, improving. NEUROLOGICAL: Awake and alert. No obvious cranial nerve deficits. Motor grossly within normal limits. Normal speech. PSYCHIATRIC: Appropriate mood and affect; insight and judgment normal. Procedures 11/27/16 - Right IJ HD catheter placement by IR Medications and IVs Current Medications Medications (Trade) Dose Ordered Sig/Jerri Route Start Time Stop Time Status Last Admin (NS Flush) 2 ml UNSCH PRN IV FLUSH 11/26/16 21:00 (NS Flush) 2 ml BID IV FLUSH 11/26/16 21:00 11/28/16 08:41 (Narcan Inj) 0.4 mg UNSCH PRN IV 11/26/16 21:00 (D50w (Vial) Inj) 50 ml UNSCH PRN IV 11/27/16 04:00 11/27/16 18:28 (Glucagon Inj) 1 mg UNSCH PRN OTHER 11/27/16 04:00 (Heparin Inj) 5,000 units Q8HR SQ 11/27/16 06:00 11/28/16 06:11 (Catapres) 0.1 mg Q6H PRN PO 11/27/16 09:00 11/27/16 09:40 (Norvasc) 10 mg DAILY PO 11/27/16 09:00 11/28/16 08:40 (Trandate) 100 mg Q12HR PO 11/27/16 12:15 11/28/16 08:40 (NS Flush) UNSCH PRN IVF 11/27/16 16:15 Heparin Sodium (Porcine) UNSCH PRN IV FLUSH 11/27/16 16:15 (NS 1000 ml Inj) 1,000 ml @ 0 mls/hr Q0M PRN IV 11/27/16 16:22 Heparin Sodium (Porcine) 8000 units 8,000 units UNSCH PRN IVF 11/27/16 16:30 Sodium Chloride 1,000 ml @ 200 mls/hr Q5H PRN IV 11/27/16 16:22 (NS 1000 ml Inj) 1,000 ml @ 0 mls/hr Q0M PRN IV 11/27/16 16:22 (Mannitol Inj) 12.5 gm UNSCH PRN IV 11/27/16 16:30 (Albumin 25% Inj) 25 gm UNSCH PRN IV 11/27/16 16:30 (NS Flush) 5 ml UNSCH PRN IV FLUSH 11/27/16 16:30 (Heparin Inj) UNSCH PRN .XX 11/27/16 16:30 (Gentamicin (Dialysis) Inj) 20 mg UNSCH PRN IV 11/27/16 16:30 (Zofran Inj) 4 mg UNSCH PRN IV 11/27/16 16:30 11/28/16 01:46 (Tylenol) 650 mg UNSCH PRN PO 11/27/16 16:30 (Benadryl) 25 mg UNSCH PRN PO 11/27/16 16:30 (Nitrostat Sl) 0.4 mg UNSCH PRN SL 11/27/16 16:30 (Catapres) 0.1 mg UNSCH PRN PO 11/27/16 16:30 (Epogen Inj) 10,000 units UNSCH PRN IV 11/27/16 16:30 (Gelfoam 12 Mm/7 Mm Top) 1 foam UNSCH PRN TOP 11/27/16 16:30 (Levemir Inj) 20 units BID SQ 11/27/16 21:00 11/28/16 09:34 (Thornton 5-325 Mg) 1 tab Q4H PRN PO 11/27/16 18:45 11/27/16 19:40 (Dilaudid Pf Inj) 0.5 mg Q3HR PRN IV PUSH 11/28/16 10:45 UNV A/P Problem List: (1) Acute renal failure ICD Code: N17.9 Status: Acute Assessment and Plan 26-year-old female with history of CKD unknown stage, presents after outpatient labs revealed acute on chronic renal failure. Acute Renal Failure, on CKD, unknown baseline staging (patient believes recent baseline creatinine around 6, previous admission Cr 5.37 on 10/23/16). - Renal U/S showed tiny cysts right kidney. Kidneys are borderline echogenic which can be seen with medical renal disease. - S/p IVF, now discontinued - monitor BMP - consult nephrology - s/p Right IJ HD catheter placed by IR 11/27 - plan to start hemodialysis today - of note, patient plans to return to [place] with mother, requesting dialysis to be arranged in [place] Hypoglycemia with Type 1 diabetes mellitus: multiple episodes of hypoglycemia yesterday, suspect secondary to poor oral intake, NPO status, nausea/vomiting, and receiving Levemir - decreased patient's Levemir to 20u bid - Accu-Cheks and cover with low dose NovoLog sliding scale coverage - Monitor trends and blood glucose and adjust treatment as indicated - Hypoglycemia protocol Hypertensive Urgency secondary to Accelerated Hypertension: patient's BP consistently elevated, as high as 217/105 - continue patient's Norvasc and nephrology started patient on Labetalol 100mg bid - added clonidine prn Nausea/Vomiting: suspect multifactorial secondary to renal function, receiving pain medications, and hypoglycemia - change pain meds to IV dilaudid, patient has done well with this in the past - continue IV zofran prn - advance diet as tolerated DVT prophylaxis- Heparin 5000 units subcutaneous every 8 hours Discharge Planning Receiving hemodialysis for the first time today. Will likely discharge tomorrow if cleared by nephrology. Needs outpatient dialysis arrangements made. Problem Qualifiers (1) Acute renal failure: Qualified Code: N17.9 - Acute renal failure, unspecified acute renal failure type Yu Matute PA-C Nov 28, 2016 11:04 am
[2016-11-28] MEDS: HYDROmorphone HCL PF 1 MG/ML VIAL IV PUSH PRN ×2 (12:21→21:17)
[2016-11-28] MEDS: cloNIDine HCL 0.1 MG TAB PO PRN ×3 (12:34→21:26)
[2016-11-28] MEDS: GENTAMICIN SULFATE (DIALYSIS USE ONLY) 20 MG/2 ML VIAL IV PRN (16:23)
[2016-11-28] MEDS: HEPARIN SODIUM - IV 10,000 UNITS/10 ML VIAL PRN (16:23)
--- NOTE | 2016-11-28 17:17 | HHI.NPPN ---
Subjective History of Present Illness 26-year-old female with a past medical history of hypertension, history of chronic kidney disease, diabetes mellitus, seizure disorder, who was sent to the hospital by her primary physician because of very high BUN and creatinine. The patient was told in [place], [place] in March 2016 when she was admitted in the hospital that her kidney function was very bad and she will need a kidney biopsy, but it was not done and she was discharged. Additional Remarks Patient is alert, seen during HD, no SOB, feeling better. Review of Systems General Constitutional: Fatigue Respiratory Lungs: SOB Cardiovascular Cardiac: Edema, SILVER Objective Data Data 11/27/16 11/28/16 19:00 07:00 Intake Total 600 ml Balance 600 ml IV Total 600 ml Vital Signs Date Time Temp Pulse Resp B/P Pulse Ox O2 Delivery O2 Flow Rate FiO2 11/28/16 13:56 198/99 11/28/16 12:24 98.6 96 16 217/107 96 11/28/16 11:44 207/107 11/28/16 10:13 21 11/28/16 08:13 98.5 96 18 195/97 98 11/28/16 04:06 93 11/28/16 03:29 98.4 72 18 186/88 95 11/28/16 02:17 12 11/28/16 00:34 98.8 95 18 173/84 97 11/28/16 00:16 95 11/27/16 21:10 91 11/27/16 20:40 12 11/27/16 20:18 98.4 91 18 172/92 98 11/27/16 19:33 21 -: 11/27/16 0700 11/27/16 0700 Physical Exam General Appearance: No Acute Distress, Comfortable Eyes Eye Exam: Pupils Equal Ears & Nose Ears & Nose Exam: Tympanic Membranes Normal Pulmonary Resp Exam: Clear Bilaterally, Breath Sounds Equal, No Distress, Rhonchi Cardiology CV Exam: Regular, Normal Sinus Rhythm Gastrointestinal/Abdomen GI Exam: Soft, Non-Tender, Bowel Sounds Present Extremeties Extremities Exam: Moderate Edema, Pitting Edema, Dependent Edema Neurologic Neuro Exam: Alert, Awake, Oriented Psychiatric Psych Exam: Appropriate Responses Assessment/Plan Assessment Summary: Anemia of CKD, Fluid/Volume Overload, Hypertension, End Stage Renal Disease Problem List: (1) Gastroenteritis (2) Hypertension (3) Hyperkalemia (4) Anemia (5) End stage kidney disease Plan Patient started on Dialysis after the PermCath. BP is still elevated, increase Labetalol to 200 mg BID. HD now, gentle, 1st treatment. Epogen with HD. Patient is planning to go to [place] soon, so will not get AVF now. If she stay here enough, will try to get Renal Biopsy early next week, or this can also be done there. Problem Qualifiers (1) Anemia: Kiara Tan MD Nov 28, 2016 17:17
[2016-11-29 00:20] VITALS: BP 204/104; PULSE 93; RESP 18; TEMP 97.6; O2SAT 99
[2016-11-29] MEDS: cloNIDine HCL 0.1 MG TAB PO PRN (00:42)
[2016-11-29 04:15] VITALS: BP 194/98; PULSE 93; RESP 18; TEMP 97.8; O2SAT 100
[2016-11-29] MEDS: HEPARIN SODIUM - SQ 10,000 UNITS/ML VIAL SQ SCH ×2 (06:03→14:24)
[2016-11-29] MEDS: INSULIN ASPART SUPPLEMENTAL SCALE SQ SCH ×3 (06:03→16:27)
[2016-11-29 08:00] VITALS: BP 168/104; PULSE 90; RESP 18; TEMP 98; O2SAT 100
[2016-11-29] MEDS: LABETALOL HCL 100 MG TAB PO SCH (08:41)
[2016-11-29] MEDS: INSULIN DETEMIR 100 UNITS/ML VIAL SQ SCH (09:00)
[2016-11-29] MEDS: SODIUM CHLORIDE 0.9% FLUSH 10 ML FLUSH IV FLUSH SCH (09:00)
[2016-11-29] MEDS: GENTAMICIN SULFATE (DIALYSIS USE ONLY) 20 MG/2 ML VIAL IV PRN (10:57)
[2016-11-29] MEDS: HEPARIN SODIUM - IV 10,000 UNITS/10 ML VIAL PRN (10:58)
[2016-11-29 11:39] VITALS: O2SAT 99
[2016-11-29 12:00] VITALS: BP 149/90; PULSE 100; RESP 18; TEMP 97.8; O2SAT 100
[2016-11-29] MEDS ORDERED: LABE100T2 PO (12:08)
[2016-11-29] MEDS ORDERED: CLON.1 PO (12:08)
[2016-11-29] MEDS ORDERED: LEVEMIR SQ (12:08)
--- NOTE | 2016-11-29 12:09 | HHI.DS ---
Discharge Summary Admission Date Nov 26, 2016 at 9:01 pm Discharge Date: Nov 29, 2016 Admitting Diagnosis acute renal failure, hyperkalemia, diabetes (1) End stage kidney disease ICD Code: N18.6 Diagnosis: Principal (2) Hypertension ICD Code: I10 (3) Anemia ICD Code: D64.9 Procedures 11/27/16 - Right IJ HD catheter placement by IR Brief History - From Admission Written by Rama Barnett, acting as scribe for Dr. Cerrato on 11/27/16 at 03:24. Sent from PCP to ED because of "abnormal blood work" March 2016 was told at [facility] in [facility] that she had renal failure They mentioned doing a renal biopsy in March 2016 but it was never done Denies fever, diarrhea, black or red stool, hematuria, dysuria, oliguria, abdominal pain Complains of nausea, vomiting, diaphoresis with eating any foods, for the last two weeks, reports drowsiness No close contacts with nausea or vomiting She has not been on bp medications for about two weeks Was on amlodipine, furosemide, and lisinopril Reports that she has been put on transplant list by her primary care provider DANE Núñez . CBC/BMP: 11/27/16 0700 11/27/16 0700 Significant Findings Laboratory Tests Test 11/26/16 11/26/16 11/27/16 17:20 23:34 07:00 Red Blood Count 2.52 MIL/MM3 2.72 MIL/MM3 (4.00-5.30) (4.00-5.30) Hemoglobin 7.8 GM/DL 7.9 GM/DL (11.6-15.3) (11.6-15.3) Hematocrit 22.3 % 24.3 % (35.0-46.0) (35.0-46.0) Potassium Level 5.7 MEQ/L (3.5-5.1) Chloride Level 110 MEQ/L 109 MEQ/L 109 MEQ/L (98-107) (98-107) (98-107) Carbon Dioxide Level 18.1 MEQ/L 19.5 MEQ/L (21.0-32.0) (21.0-32.0) Blood Urea Nitrogen 39 MG/DL (7-18) 45 MG/DL (7-18) 44 MG/DL (7-18) Creatinine 6.34 MG/DL 6.37 MG/DL 6.07 MG/DL (0.50-1.00) (0.50-1.00) (0.50-1.00) Estimat Glomerular Filtration 10 ML/MIN (>89) 10 ML/MIN (>89) 10 ML/MIN (>89) Rate Total Bilirubin 0.1 MG/DL (0.2-1.0) Aspartate Amino Transf 11 U/L (15-37) (AST/SGOT) Alkaline Phosphatase 129 U/L (45-117) Albumin 2.1 GM/DL (3.4-5.0) Random Glucose 345 MG/DL 170 MG/DL (74-106) (74-106) Calcium Level 7.9 MG/DL 8.2 MG/DL (8.5-10.1) (8.5-10.1) Imaging Last Impressions Catheter Placement X-Ray 11/27/16 0000 Signed Impressions: Service Date/Time: Sunday, November 27, 2016 15:42 - CONCLUSION: Uncomplicated PermaCath placement as above. Chandler Reilly MD Renal Ultrasound 11/26/16 0000 Signed Impressions: Service Date/Time: Saturday, November 26, 2016 21:09 - CONCLUSION: 1. Tiny cysts right kidney. 2. Kidneys are borderline echogenic which can be seen with medical renal disease. Seng Peña MD PE at Discharge GENERAL: Well-nourished, well-developed pleasant young AA female patient in [place]. SKIN: Warm and dry. No rash. Right upper chest HD catheter in place, no surrounding erythema, slightly tender. HEENT: Normocephalic. Atraumatic.Pupils equal and round. Mucous membranes pink and moist. NECK: Supple. Trachea midline. CARDIOVASCULAR: Regular rate and rhythm. S1, S2 noted. No murmur appreciated. RESPIRATORY: No accessory muscle use. Clear to auscultation. Breath sounds equal bilaterally. GASTROINTESTINAL: Abdomen soft, non-tender, nondistended. Normoactive bowel sounds x4. MUSCULOSKELETAL: No obvious deformities. Trace BLE edema, improving. NEUROLOGICAL: Awake and alert. No obvious cranial nerve deficits. Motor grossly within normal limits. Normal speech. PSYCHIATRIC: Appropriate mood and affect; insight and judgment normal. Pt update on day of discharge Patient received dialysis today. Denies any acute concerns. Discussed with patient, patient's mother and other family members. Patient and mother want to move to [place] where they will find dialysis center. Patient's mother already started looking at a dialysis center. We discussed that it would be ideal if we could arrange or confirm outpatient dialysis. However, patient's mother is confident that she will be able to obtain dialysis in [place]. It would be difficult for our case preparer and liner to arrange outpatient dialysis in [place]. It would take several days. Patient and family did not want to wait. She was told that her next dialysis would be on Friday12/02/2016. Hospital Course 26-year-old female with history of CKD unknown stage, presents after outpatient labs revealed acute on chronic renal failure. End stage renal disease - Renal U/S showed tiny cysts right kidney. Kidneys are borderline echogenic which can be seen with medical renal disease. - S/p IVF, now discontinued - consulted nephrology - s/p Right IJ HD catheter placed by IR 11/27 - Patient received dialysis including on the day of discharge. - of note, patient plans to return to [place] with mother. As stated above, patient's mother is in the process of arranging dialysis. Hypoglycemia with Type 1 diabetes mellitus: multiple episodes of hypoglycemia yesterday, suspect secondary to poor oral intake, NPO status, nausea/vomiting, and receiving Levemir - decreased patient's Levemir to 20u bid - Accu-Cheks and cover with low dose NovoLog sliding scale coverage - Monitor trends and blood glucose and adjust treatment as indicated - Hypoglycemia protocol Hypertensive Urgency secondary to Accelerated Hypertension: patient's BP consistently elevated, as high as 217/105 - continue patient's Norvasc and nephrology started patient on Labetalol 100mg bid - added clonidine prn Nausea/Vomiting: suspect multifactorial secondary to renal function, receiving pain medications, and hypoglycemia - change pain meds to IV dilaudid, patient has done well with this in the past - continue IV zofran prn - advance diet as tolerated DVT prophylaxis- Heparin 5000 units subcutaneous every 8 hours Pt Condition on Discharge: Good Discharge Disposition: Discharge Home Discharge Time: > 30 minutes Discharge Instructions DIET: Follow Instructions for: Renal Failure Diet Activities you can perform: Regular-No Restrictions Follow up Referrals: Nephrology - 3-5 Days PCP Follow-up - 1 Week New Medications: Clonidine (Catapres) 0.1 Mg Tab 0.1 MG PO Q6H PRN SBP>160, DBP>90 #15 TAB Labetalol (Labetalol) 100 Mg Tab 200 MG PO Q12HR Blood Pressure Management #60 TAB Changed Medications: Insulin Detemir Inj (Levemir Inj) 1,000 unit/ 10 ML Vial 20 UNITS SQ BID Do not mix with any other Insulin. Blood Sugar Management Days 30 Ref 0 VIAL (Changed from: 30 UNITS) Continued Medications: Amlodipine (Amlodipine) 10 Mg Tab 10 MG PO DAILY Blood Pressure Management #30 Ref 0 TAB Insulin Aspart Inj (Novolog Inj) 1,000 Unit/10 Ml Vial 0 SQ DIRECTED Sliding Scale as directed. Blood Sugar Management #10 Ref 0 ML Promethazine (Phenergan) 25 Mg Tablet 25 MG PO Q6H PRN NAUSEA OR VOMITING #12 Ref 0 TAB Discontinued Medications: Ciprofloxacin (Cipro) 250 Mg Tab 250 MG PO BID Infection Ref 0 TAB Furosemide (Furosemide) 20 Mg Tab 20 MG PO DAILY #30 Ref 0 TAB Lisinopril (Lisinopril) 10 Mg Tab 10 MG PO DAILY #30 Ref 0 TAB Akosua Prieto DO Nov 29, 2016 12:09
== END 2016-11-29 16:43 | disposition home or self-care (01) | DRG 683 ==
LOC: NEPC 16:31 → NEDA 21:01 → NEPFCDU 22:07 → N06B 11-28 19:13
PROVIDERS: ADMIT Hospitalist; ATTEND Hospitalist
PROC: 05HM33Z Insertion of Infusion Device into Right Internal Jugular Vein, Percutaneous Approach (ICD-10-PCS; 2016-11-27)
PROC: B513ZZA Fluoroscopy of Right Jugular Veins, Guidance (ICD-10-PCS; 2016-11-27)
PROC: B543ZZA Ultrasonography of Right Jugular Veins, Guidance (ICD-10-PCS; 2016-11-27)
PROC: 5A1D00Z (ICD-10-PCS; principal; 2016-11-29)
DX: N17.9 Acute kidney failure, unspecified (principal); I12.0 Hypertensive chronic kidney disease with stage 5 chronic kidney disease or end stage renal disease; N18.6 End stage renal disease; Z76.82 Awaiting organ transplant status; E10.22 Type 1 diabetes mellitus with diabetic chronic kidney disease; E10.649 Type 1 diabetes mellitus with hypoglycemia without coma; I25.10 Atherosclerotic heart disease of native coronary artery without angina pectoris; J44.9 Chronic obstructive pulmonary disease, unspecified; G40.909 Epilepsy, unspecified, not intractable, without status epilepticus; Z86.73 Personal history of transient ischemic attack (TIA), and cerebral infarction without residual deficits; Z86.711 Personal history of pulmonary embolism; Z86.718 Personal history of other venous thrombosis and embolism; Z79.4 Long term (current) use of insulin; I16.0 Hypertensive urgency; R11.2 Nausea with vomiting, unspecified; E87.5 Hyperkalemia
CPT/HCPCS: 36558; 76775; 76937; 77001; 80048; 80053; 80074; 82948; 84702; 85025; 85610; 85730; 90935; 93005; 96374; 96375; 99152; 99153; C1750; C1769; J0690; J1170; J1580; J1644; J1815; J2250; J2270; J2405; J3010; J3370; J7030; J7050; Q4081

== ENCOUNTER 2017-06-15 11:28 | Emergency (ER) | payer MEDICARE, OTHER ==
[~2017-06-15] VITALS: Ht 157.5 cm; Wt 60.0 kg
[~2017-06-15 11:28] MED LIST changes: +ACCUMIS19; +CLON.1 PO; +HUMALOG SQ; +HYDR-3799 PO; +LABE100T2 PO; +LABE200T2 PO; +METO5TAB PO; +NEPHTAB3 PO; +ONETOUCH ULTRAULTRA; +ONETTES4; +SEVEL800 PO
[2017-06-15 11:30] VITALS: BP 167/87; PULSE 91; RESP 14; TEMP 98.3; O2SAT 100
[2017-06-15] MEDS ORDERED: SODIUM CHLOR 0.9% 1000 ML INJ 1,000 ML IV ONE (11:48)
[2017-06-15] MEDS ORDERED: SODIUM CHLORIDE 0.9% FLUSH 10 ML FLUSH IVF PRN (12:00)
--- NOTE | 2017-06-15 12:08 | RADRPT ---
EXAM DATE/TIME: 06/15/2017 11:59 [facility] COMPARISON: No previous studies available for comparison. INDICATIONS : Vomiting, body aches MEDICAL HISTORY : Hypertension. Diabetes mellitus type I. SURGICAL HISTORY : None. ENCOUNTER: Initial ACUITY: 3 days PAIN SCORE: 0/10 LOCATION: chest FINDINGS: A single view of the chest demonstrates the lungs to be symmetrically aerated without evidence of mas s, infiltrate or effusion. The heart size appears mildly enlarged. This can be secondary to portable technique. The pulmonary vasculature is normal. CONCLUSION: Mild enlargement of the cardiac silhouette. This can be secondary to portable technique. Recommend re peat upright PA lateral views to evaluate for persistent cardiomegaly. Sheri Mena MD on June 15, 2017 at 12:05 Board Certified Radiologist. This report was verified electronically.
--- NOTE | 2017-06-15 12:11 | PD ---
HPI Chief Complaint: Diabetic Time Seen by Provider: 11:42 Travel History International Travel<30 days: No Contact w/Intl Traveler<30days: No Traveled to known affect area: No History of Present Illness HPI The patient is a 26-year-old female who presents to the emergency department for nausea, vomiting, generalized myalgias. The patient has a history of type 1 diabetes, is on Levemir 20 in the morning and 10 units at night as well as NovoLog sliding scale. The patient did use Levemir 20 units this morning as well as NovoLog 8 units this morning at 9 AM. However, she states she's had no oral intake in the last 2 days secondary to persistent nausea and vomiting. She does have a history of end-stage renal disease on hemodialysis and is followed by her manager progressive care, Dr. Tan. The patient last received dialysis yesterday, did not improve her symptoms. Her sugar read "high "earlier today. She does have a previous history of DKA. She denies any fever, chills, or sweats. She denies any specific abdominal pain or dysuria. She does continue make urine without difficulty. PFSH Past Medical History Blood Disorders: No Cancer: No Cardiovascular Problems: Yes Diabetes: Yes Endocrine: Yes Genitourinary: No Hypertension: Yes Immune Disorder: No Musculoskeletal: No Neurologic: No Psychiatric: No Respiratory: No : 1 Para: 0 Miscarriage: 1 Social History Alcohol Use: No Tobacco Use: No Substance Use: No Allergies-Medications (Allergen,Severity, Reaction): Coded Allergies: No Known Allergies (Verified Adverse Reaction, Unknown, 06/15/17) Reported Meds & Prescriptions Reported Meds & Active Scripts Active Zofran Odt (Ondansetron Odt) 4 Mg Tab 4 Mg SL Q6HR PRN Talento al Aulatouch Ultra System Kit (Device) 1 Kit Kit .ROUTE DIRECTED Onetouch Ultra Test Strips (Blood Glucose Test Strips) 1 Siobhan Siobhan Strip .ROUTE DIRECTED Accu-Chek Softclix Lancet 1 Mis Mis Box .ROUTE DIRECTED Catapres (Clonidine) 0.1 Mg Tab 0.1 Mg PO Q6H PRN Labetalol (Labetalol HCl) 100 Mg Tab 200 Mg PO Q12HR Levemir Inj (Insulin Detemir) 1,000 unit/ 10 ML Vial 20 Units SQ BID 30 Days Do not mix with any other Insulin. Phenergan (Promethazine HCl) 25 Mg Tablet 25 Mg PO Q6H PRN Amlodipine (Amlodipine Besylate) 10 Mg Tab 10 Mg PO DAILY Reported Renvela (Sevelamer Carbonate) 800 Mg Tab 800 Mg PO TID Levemir Inj (Insulin Detemir) 1,000 unit/ 10 ML Vial 20 Units SQ DAILYAC Do not mix with any other Insulin. Levemir Inj (Insulin Detemir) 1,000 unit/ 10 ML Vial 10 Units SQ HS Do not mix with any other Insulin. Humalog Inj (Insulin Human Lispro) Unknown Strength Vial Unknown Dose SQ ACHS Max dose at bedtime:( )units; sugars< 70,(0)units; sugars 150-199,(1)unit; sugars 200-249,(3)units; sugars 250-299,(5)units; sugars 300-349,(7)units; sugars more than 349,(9)units. Nephro-Fausto (B-Complex W/ C & Folic Acid) 1 Tab 1 Tab PO DAILY Labetalol (Labetalol HCl) 200 Mg Tab 200 Mg PO BID Hydralazine HCl 25 Mg Tablet 25 Mg PO TID Amlodipine (Amlodipine Besylate) 10 Mg Tab 10 Mg PO DAILY Metoclopramide (Metoclopramide HCl) 5 Mg Tab 5 Mg PO QID Novolog Inj (Insulin Aspart) 1,000 Unit/10 Ml Vial 0 SQ DIRECTED Sliding Scale as directed. Review of Systems Except as stated in HPI: all other systems reviewed are Neg General / Constitutional: No: Fever Cardiovascular: No: Chest Pain or Discomfort Respiratory: No: Shortness of Breath Gastrointestinal: Positive: Nausea, Vomiting, No: Abdominal Pain Genitourinary: No: Dysuria Musculoskeletal: Positive: Myalgias, Arthralgias, Weakness Physical Exam Narrative GENERAL: Awake, alert, pleasant 26 year-old female who appears her stated age and is in no acute respiratory distress. SKIN: Focused skin assessment warm/dry. HEAD: Atraumatic. Normocephalic. EYES: Pupils equal and round. No scleral icterus. No injection or drainage. ENT: No nasal bleeding or discharge. Dry mucous membranes. Tongue ring in place. NECK: Trachea midline. No JVD. CARDIOVASCULAR: Regular rate and rhythm. No murmur appreciated. Heart rate in the 90s. RESPIRATORY: No accessory muscle use. Clear to auscultation. Breath sounds equal bilaterally. GASTROINTESTINAL: Abdomen soft, non-tender, nondistended. No rebound tenderness. MUSCULOSKELETAL: Left upper extremity AV fistula with positive thrill and bruit. NEUROLOGICAL: Awake and alert. No obvious cranial nerve deficits. Motor grossly within normal limits. Normal speech. PSYCHIATRIC: Appropriate mood and affect; insight and judgment normal. Data Data Last Documented VS Vital Signs Date Time Temp Pulse Resp B/P (MAP) Pulse Ox O2 Delivery O2 Flow Rate FiO2 06/15/17 14:13 89 17 178/76 (110) 99 Room Air 06/15/17 11:30 98.3 Orders Orders Electrocardiogram (06/15/17 11:48) Complete Blood Count With Diff (06/15/17 11:48) Comprehensive Metabolic Panel (06/15/17 11:48) Magnesium (Mg) (06/15/17 11:48) Beta Hydroxybutyrate (Acetone) (06/15/17 11:48) Urinalysis - C+S If Indicated (06/15/17 11:48) Chest, Single Ap (06/15/17 11:48) Blood Gas Venous (Vbg) (06/15/17 11:48) Blood Glucose (06/15/17 11:48) Blood Glucose (06/15/17 12:48) Ecg Monitoring (06/15/17 11:48) Iv Access Insert/Monitor (06/15/17 11:48) Oximetry (06/15/17 11:48) NPO (06/15/17 11:48) Sodium Chloride 0.9% Flush (Ns Flush) (06/15/17 12:00) Sodium Chlor 0.9% 1000 Ml Inj (Ns 1000 M (06/15/17 11:48) Lipase (06/15/17 11:48) Ondansetron Inj (Zofran Inj) (06/15/17 12:15) Influenzae A/B Antigen (06/15/17 12:22) Potassium Chloride (Kcl) (06/15/17 13:00) Dextrose 50% In Della (Syr) Inj (D50w (Syr (06/15/17 14:35) Dextrose 50% In Della (Syr) Inj (D50w (Syr (06/15/17 14:45) Diet Regular Basic (06/15/17 Dinner) Ed Discharge Order (06/15/17 17:22) Labs Laboratory Tests Test 06/15/17 12:00 White Blood Count 12.2 TH/MM3 Red Blood Count 3.64 MIL/MM3 Hemoglobin 11.6 GM/DL Hematocrit 33.7 % Mean Corpuscular Volume 92.5 FL Mean Corpuscular Hemoglobin 31.9 PG Mean Corpuscular Hemoglobin Concent 34.5 % Red Cell Distribution Width 17.9 % Platelet Count 357 TH/MM3 Mean Platelet Volume 8.1 FL Neutrophils (%) (Auto) 69.4 % Lymphocytes (%) (Auto) 25.4 % Monocytes (%) (Auto) 3.6 % Eosinophils (%) (Auto) 0.8 % Basophils (%) (Auto) 0.8 % Neutrophils # (Auto) 8.4 TH/MM3 Lymphocytes # (Auto) 3.1 TH/MM3 Monocytes # (Auto) 0.4 TH/MM3 Eosinophils # (Auto) 0.1 TH/MM3 Basophils # (Auto) 0.1 TH/MM3 CBC Comment DIFF FINAL Differential Comment Blood Gas Puncture Site RN Blood Gas Patient Temperature 98.6 Venous Blood pH 7.40 Venous Blood Partial Pressure CO2 31 mmHg Venous Blood Partial Pressure O2 42 mmHg Venous Blood HCO3 19 mmol/L Venous Blood Oxygen Saturation 76 % Venous Blood Oxygen Content 11.0 Vol % Venous Blood Base Excess -5.4 mmol/L Blood Gas Inspired Oxygen 21 % Blood Urea Nitrogen 33 MG/DL Creatinine 5.05 MG/DL Random Glucose 205 MG/DL Total Protein 8.5 GM/DL Albumin 3.3 GM/DL Calcium Level 8.6 MG/DL Magnesium Level 2.2 MG/DL Alkaline Phosphatase 210 U/L Aspartate Amino Transf (AST/SGOT) 10 U/L Alanine Aminotransferase (ALT/SGPT) 16 U/L Total Bilirubin 0.5 MG/DL Sodium Level 135 MEQ/L Potassium Level 2.8 MEQ/L Chloride Level 94 MEQ/L Carbon Dioxide Level 20.8 MEQ/L Anion Gap 20 MEQ/L Estimat Glomerular Filtration Rate 13 ML/MIN Lipase 223 U/L B-Hydroxybutyrate 4.60 MMOL/L [facility] Medical Decision Making Medical Screen Exam Complete: Yes Emergency Medical Condition: Yes Medical Record Reviewed: Yes Interpretation(s) EKG reveals normal sinus rhythm with a rate of 90. No ischemic changes or ectopy noted. Last Impressions Chest X-Ray 06/15/17 1148 Signed Impressions: Service Date/Time: Thursday, June 15, 2017 11:59 - CONCLUSION: Mild enlargement of the cardiac silhouette. This can be secondary to portable technique. Recommend repeat upright PA lateral views to evaluate for persistent cardiomegaly. Sheri Mena MD Laboratory Tests Test 06/15/17 12:00 White Blood Count 12.2 TH/MM3 Red Blood Count 3.64 MIL/MM3 Hemoglobin 11.6 GM/DL Hematocrit 33.7 % Mean Corpuscular Volume 92.5 FL Mean Corpuscular Hemoglobin 31.9 PG Mean Corpuscular Hemoglobin Concent 34.5 % Red Cell Distribution Width 17.9 % Platelet Count 357 TH/MM3 Mean Platelet Volume 8.1 FL Neutrophils (%) (Auto) 69.4 % Lymphocytes (%) (Auto) 25.4 % Monocytes (%) (Auto) 3.6 % Eosinophils (%) (Auto) 0.8 % Basophils (%) (Auto) 0.8 % Neutrophils # (Auto) 8.4 TH/MM3 Lymphocytes # (Auto) 3.1 TH/MM3 Monocytes # (Auto) 0.4 TH/MM3 Eosinophils # (Auto) 0.1 TH/MM3 Basophils # (Auto) 0.1 TH/MM3 CBC Comment DIFF FINAL Differential Comment Blood Gas Puncture Site RN Blood Gas Patient Temperature 98.6 Venous Blood pH 7.40 Venous Blood Partial Pressure CO2 31 mmHg Venous Blood Partial Pressure O2 42 mmHg Venous Blood HCO3 19 mmol/L Venous Blood Oxygen Saturation 76 % Venous Blood Oxygen Content 11.0 Vol % Venous Blood Base Excess -5.4 mmol/L Blood Gas Inspired Oxygen 21 % Blood Urea Nitrogen 33 MG/DL Creatinine 5.05 MG/DL Random Glucose 205 MG/DL Total Protein 8.5 GM/DL Albumin 3.3 GM/DL Calcium Level 8.6 MG/DL Magnesium Level 2.2 MG/DL Alkaline Phosphatase 210 U/L Aspartate Amino Transf (AST/SGOT) 10 U/L Alanine Aminotransferase (ALT/SGPT) 16 U/L Total Bilirubin 0.5 MG/DL Sodium Level 135 MEQ/L Potassium Level 2.8 MEQ/L Chloride Level 94 MEQ/L Carbon Dioxide Level 20.8 MEQ/L Anion Gap 20 MEQ/L Estimat Glomerular Filtration Rate 13 ML/MIN Lipase 223 U/L B-Hydroxybutyrate 4.60 MMOL/L Date/Time Source Procedure Growth Status 06/15/17 12:40 Nasal Aspirate Influenza Types A,B Antigen (KELLY) - Final NEGATIVE FOR FLU A AND B ANTIGEN.... Complete Differential Diagnosis Differential diagnosis includes DKA, dehydration, gastritis, ESRD on hemodialysis, hyperkalemia, hypokalemia, viral syndrome, influenza. Narrative Course IV was established, labs are drawn and sent, and the patient was placed on cardiac telemetry monitoring and continuous pulse oximetry monitoring. EKG was ordered and interpreted. VBG was obtained. The patient was administered 1 L of IV fluids and Zofran 4 mg intravenously. The patient's VBG reveals a pH is 7.4, anion gap was 20, however, carbon dioxide was 20.8, this does not appear to be DKA. The patient did receive IV fluids and Zofran, was reevaluated at 1: 55 PM. The patient's potassium was low at 2.8, she is a dialysis patient but does make urine. She was administered potassium 20 mEq orally. The patient was reevaluated, her symptoms had significantly improved and she was tolerating oral intake. This is not DKA, does appear to be gastritis with hyperglycemia and dehydration. I offered 23 hour observation, however, patient feels well, would like to try outpatient management. I will send the patient home on Zofran , she is advised to return if symptoms worsen or progress as this may lead to over dehydration, alleged slight abnormalities, possibly DKA. The patient agrees and understands. Prior to discharge the patient's blood sugar dropped to 38. The patient was administered one amp of D50 and then provided crackers. A meal tray was ordered. However, the meal tray was not delivered, the patient's blood sugar dropped back to 50. She was awake and alert, the patient was immediately given food and oral glucose. I offered 23 hour observation, however, the patient did not want to stay in the hospital. Therefore, repeat blood glucose for 5 PM was ordered. Repeat blood glucose was 72, patient symptoms have significantly improved. Patient is advised to return if symptoms worsen or progress. She is also advised to hold the Levemir dose tonight and not used sliding scale insulin unless her blood sugars greater than 300. Diagnosis Primary Impression: Gastroenteritis Additional Impressions: Dehydration Hypokalemia Patient Instructions: General Instructions Additional Instructions: Medications as directed. Return if symptoms worsen or progress. Monitor intake and output. Med/Other Pt SpecificInfo: Prescription(s) given, Other (hold Levemir tonight, do not use sliding scale insulin the last blood sugars greater than 300 ) Scripts Ondansetron Odt (Zofran Odt) 4 Mg Tab 4 MG SL Q6HR Y for Nausea/Vomiting, #10 TAB 0 Refills Prov: Emil Padilla MD 06/15/17 Disposition: 01 DISCHARGE HOME Condition: Stable Emil Padilla MD Jun 15, 2017 12:11
[2017-06-15] MEDS ORDERED: ONDANSETRON HCL 4 MG/2 ML VIAL IV PUSH ONE (12:15)
[2017-06-15 12:42] LABS: AUTOMATED NEUTROPHIL # 8.4 TH/MM3 (1.8-7.7); BASOPHIL # 0.1 TH/MM3 (0-0.2); BASOPHIL % 0.8 % (0.0-2.0); EOSINOPHIL # 0.1 TH/MM3 (0-0.4); EOSINOPHIL % 0.8 % (0.0-4.0); HEMATOCRIT 33.7 % (35.0-46.0); HEMOGLOBIN 11.6 GM/DL (11.6-15.3); LYMPH % 25.4 % (9.0-44.0); LYMPHOCYTE # 3.1 TH/MM3 (1.0-4.8); MEAN CELL VOLUME 92.5 FL (80.0-100.0); MEAN CORPUSCULAR HEMOGLOBIN 31.9 PG (27.0-34.0); MEAN CORPUSCULAR HGB CONC 34.5 % (32.0-36.0); MEAN PLATELET VOLUME 8.1 FL (7.0-11.0); MONO % 3.6 % (0.0-8.0); MONOCYTE # 0.4 TH/MM3 (0-0.9); NEUT % 69.4 % (16.0-70.0); PLATELET COUNT 357 TH/MM3 (150-450); RED BLOOD COUNT 3.64 MIL/MM3 (4.00-5.30); RED CELL DISTRIBUTION WIDTH 17.9 % (11.6-17.2); WHITE BLOOD COUNT 12.2 TH/MM3 (4.0-11.0)
[2017-06-15 12:58] LABS: ALBUMIN 3.3 GM/DL (3.4-5.0); ALT (GPT) 16 U/L (10-53); AST (GOT) 10 U/L (15-37); BICARBONATE 20.8 MEQ/L (21.0-32.0); BLOOD UREA NITROGEN 33 MG/DL (7-18); CALCIUM 8.6 MG/DL (8.5-10.1); CHLORIDE 94 MEQ/L (98-107); CREATININE 5.05 MG/DL (0.50-1.00); GLOMERULAR FILTRATION RATE 13 ML/MIN (>89); GLUCOSE,RANDOM 205 MG/DL (74-106); MAGNESIUM 2.2 MG/DL (1.5-2.5); SODIUM (NA) 135 MEQ/L (136-145)
[2017-06-15] MEDS ORDERED: POTASSIUM CHLORIDE 20 MEQ CONTROLLED RELEASE TAB PO ONE (13:00)
[2017-06-15 13:09] LABS: ALKALINE PHOSPHATASE 210 U/L (45-117); TOTAL BILIRUBIN ADULT 0.5 MG/DL (0.2-1.0); TOTAL PROTEIN 8.5 GM/DL (6.4-8.2)
[2017-06-15] MEDS ORDERED: ZOFR4TAB3 SL (13:58)
[2017-06-15 14:13] VITALS: BP 178/76; PULSE 89; RESP 17; O2SAT 99
[2017-06-15] MEDS ORDERED: DEXTROSE 50% IN WATER 50 ML SYRINGE ONE (14:35)
[2017-06-15] MEDS ORDERED: DEXTROSE 50% IN WATER 50 ML SYRINGE IV PUSH ONE (14:45)
[2017-06-15 17:28] VITALS: BP 177/79; PULSE 91; RESP 17; O2SAT 99
--- NOTE | 2017-06-16 11:01 | EKG ---
Date Performed: 06/15/2017 Time Performed: 12:13:49 PTAGE: 26 years EKG: Sinus rhythm NORMAL ECG Since the prior tracing, there has been no significant change PREVIOUS TRACING : 11/26/2016 20.41 DOCTOR: Ghanshyam Beverly Interpretating Date/Time 06/16/2017 10:59:13
== END 2017-06-15 17:35 | disposition home or self-care (01) ==
LOC: NEPC 11:28
DX: K52.9 Noninfective gastroenteritis and colitis, unspecified (principal); E86.0 Dehydration; E87.6 Hypokalemia; E10.22 Type 1 diabetes mellitus with diabetic chronic kidney disease; I12.0 Hypertensive chronic kidney disease with stage 5 chronic kidney disease or end stage renal disease; N18.6 End stage renal disease; Z99.2 Dependence on renal dialysis; Z79.4 Long term (current) use of insulin; Z79.899 Other long term (current) drug therapy
CPT/HCPCS: 71045; 80053; 82010; 82805; 83690; 83735; 85025; 87804; 93005; 96361; 96374; 96375; 99285; J2405; J7030

== ENCOUNTER 2017-08-06 07:41 | Day surgery (SDC) | payer MEDICARE, OTHER ==
[~2017-08-06] VITALS: Ht 157.5 cm; Wt 59.3 kg
[~2017-08-06 07:41] MED LIST changes: +ZOFR4TAB3 SL
[2017-08-06] MEDS ORDERED: IOHEXOL 350 MG/ML 100 ML BTL (for Cath Lab) OTHER ONE (07:42)
[2017-08-06 08:00] VITALS: BP 159/90; PULSE 96; RESP 18; TEMP 98.1; O2SAT 99
[2017-08-06] MEDS ORDERED: NS 1000P @30 MLS/HR (KVO) IV SCH (08:30)
[2017-08-06 08:38] LABS: AUTOMATED NEUTROPHIL # 8.3 TH/MM3 (1.8-7.7); BASOPHIL # 0.1 TH/MM3 (0-0.2); EOSINOPHIL # 0.2 TH/MM3 (0-0.4); EOSINOPHIL % 1.5 % (0.0-4.0); HEMATOCRIT 35.9 % (35.0-46.0); HEMOGLOBIN 11.7 GM/DL (11.6-15.3); LYMPH % 15.4 % (9.0-44.0); LYMPHOCYTE # 1.7 TH/MM3 (1.0-4.8); MEAN CELL VOLUME 96.7 FL (80.0-100.0); MEAN CORPUSCULAR HEMOGLOBIN 31.6 PG (27.0-34.0); MEAN CORPUSCULAR HGB CONC 32.7 % (32.0-36.0); MEAN PLATELET VOLUME 8.4 FL (7.0-11.0); MONO % 7.1 % (0.0-8.0); MONOCYTE # 0.8 TH/MM3 (0-0.9); PLATELET COUNT 199 TH/MM3 (150-450); RED BLOOD COUNT 3.71 MIL/MM3 (4.00-5.30); RED CELL DISTRIBUTION WIDTH 15.8 % (11.6-17.2)
[2017-08-06] MEDS ORDERED: LOSA25TA PO (08:40)
[2017-08-06 08:49] LABS: INTERNATIONAL NORMALIZED RATIO 1.1 RATIO; PROTHROMBIN TIME - PATIENT 10.8 SEC (9.8-11.6)
[2017-08-06 09:05] LABS: BICARBONATE 25.2 MEQ/L (21.0-32.0); BLOOD UREA NITROGEN 34 MG/DL (7-18); CALCIUM 8.6 MG/DL (8.5-10.1); CHLORIDE 96 MEQ/L (98-107); CREATININE 5.86 MG/DL (0.50-1.00); GLOMERULAR FILTRATION RATE 11 ML/MIN (>89); SODIUM (NA) 131 MEQ/L (136-145)
[2017-08-06 09:07] LABS: GLUCOSE,RANDOM 457 MG/DL (74-106)
[2017-08-06] MEDS ORDERED: MIDAZOLAM HCL 2 MG/2 ML VIAL ONE (09:31)
[2017-08-06] MEDS ORDERED: HEPARIN-NS/PF FLUSH BAG 2,000 ML IV FLUSH ONE ×2 (09:31→09:32)
[2017-08-06] MEDS ORDERED: DEXTROSE 50% IN WATER 50 ML VIAL(D50) IV PUSH PRN (10:15)
[2017-08-06] MEDS ORDERED: PLEASE DISCONTINUE PREVIOUS SUPPLEMENTAL SCALE INSULIN ORDERS ONE (10:15)
[2017-08-06] MEDS ORDERED: GLUCAGON 1 MG/ML VIAL OTHER PRN (10:15)
[2017-08-06] MEDS ORDERED: hydrALAZINE HCL 20 MG/ML VIAL ONE (10:18)
--- NOTE | 2017-08-06 10:42 | CATHPROC ---
[employer] HIS Report Study Information Study Number Admission Scheduled Start Study Start [id number] Aug 06 2017 7:41AM 08/06/2017 Aug 06 2017 9:30AM [facility] Cardiac Catheterization Admit Source Facility Department Other [facility] - [facility] Physician and Clinical Staff Initial Brendon Land Electrician Bus Karen Klein,RN Recorder Annie Villar ,RT(R) Scrub Kerry Dunn,CLAIMS SPECIALIST TECH2 Procedures Performed Procedure Location (Site) Vessel Name Coronary Angiograms LCA Left Coronary Coronary Angiograms RCA Right Coronary Equipment Time Business Librarian Description Size Mfg Part Number Used/Scraped [id number] 09:31 MOORE MUNSON SWAN PHILIPPE CATHETER FR 7 Used *[id number] TRANSDUCER, TRUWAVE [id number] 09:31 MOORE MUNSON * Used W/STOCKCOCK *[id number] INTRODUCER SET, 09:31 [employer] FR 5 [id number] *[id number] Used MICROPUNCTURE STIFF [id number] 09:31 [employer] PACK, CCL CUSTOM * Used *[id number] 10:22 MEDTRONIC JL 4.0 DXTERITY CATHETER FR 5 Used *[id number] 09:45 MEDTRONIC JR 4.0 DXTERITY CATHETER FR 5 Used *[id number] 09:31 VDP MEDICAL WIRE, 3MMJ .035 180CM 180CM Used *[id number] 09:31 NAMIC MANIFOLD, 4 PORT * Used *[id number] 09:31 NYCOMED OMNIPAQUE, 350 MG, 150ML 150ML [id number] Used [id number] 09:31 [employer] MEDICAL BLANKET,WARM AIR CCL * Used *[id number] 09:31 TERUMO MEDICAL SHEATH, FR5 TERUMO (10CM) FR 5 Used *[id number] 09:31 TERUMO MEDICAL SHEATH, FR7 TERUMO (10CM) FR 7 Used *[id number] Equipment Model, Serial, Lot Number and Expiration Data Description Model Number Serial Number Lot Number Expiration Date JL 4.0 DXTERITY CATHETER [id number] 05-14-2020 JR 4.0 DXTERITY CATHETER [id number] 02-12-2020 History: Current Medications Medication Dosage/Unit Route Frequency Last Date/Time Taken Beta Kolby History: Allergies Allergy Reaction No Known Allergies History: Risk Factors Family History of Hypertension Dyslipidemia Previous AL Previous Heart Failure Premature CAD Yes No No No No Prior Valve Prior PCI Prior CABG Surgery No No No Cerebrovascular Peripheral Artery Chronic Lung On Dialysis Diabetes Diabetes Therapy Disease Disease Disease Yes No No No Yes Insulin History: Stress Tests Stress or Imaging Studies Performed Yes Standard Exercise Stress Test No Stress Echo No Stress Test SPECT Stress Test SPECT Result Yes Indeterminant Stress Test CMR No Cardiac CTA Coronary Calcium Score No No History: Other Disease Selection Items HTN Renal Failure-Dialysis Labs Hgb (g/dl) Hct (%) WBC (l/cumm) Platelets (thousands) 11.60-17.00 35.00-51.00 4.00-11.00 150.00-450.00 11.7 35.9 11 199 Glucose (mg/dl) BUN (mg/dl) Creatinine (mg/dl) BUN:Creatinine (1:x) 74.00-106.00 7.00-18.00 0.50-1.30 10.00-20.00 457 34 5.8 5.9 Na (meq/l) K (meq/l) 136.00-145.00 3.50-5.10 131 4.9 INR (PTT:PT) 0.90-1.10 1.1 CPK-MB (ng/ML) 0.50-3.60 Not Drawn Medication Medication Total Dose (Bolus/Oral) Medication Total Dosage/Unit FENTANYL 50 mcg HYDRALAZINE 10 mg Medications (Bolus/Oral) Medication Time Given Dosage/Unit Administered By Reason FENTANYL 08/06/2017 10:00:17 AM 50 mcg Karen Klein 50 mcg FENTANYL given in lab by Karen Klein RN in Right Hand via Peripheral IV. Ordered by Brendon Fan HYDRALAZINE 08/06/2017 10:19:15 AM 10 mg Karen Klein 10 mg HYDRALAZINE given in lab by Karen Klein RN in Right Hand via Peripheral IV. Ordered by Brendon Adame Medication (Drip) Medication Time Given Dosage/Unit Concentration/Unit Diluent (ml) Solution IV Solutions 08/06/2017 9:30:24 AM 50 mL (IV) NaCl .9 Patient arrived on IV Solutions in Right Antecubital via Peripheral IV. Pump/Drip Flow using NaCl .9. Initial Case Assessment Cardiovascular HR NIBP Chest Pain 100 186/99 0 Edema Present Skin color Skin None Normal Warm Dry Circulatory - Right Pulses Dorsalis Pedis Femoral 1 2 Scale (0,1,2,3,4,d) Circulatory - Left Pulses Dorsalis Pedis Femoral 1 2 Scale (0,1,2,3,4,d) Circulatory - Lower Extremities Color Lower Right Color Lower Left Normal Normal Neurological State Oriented to time-place- Alert Moves all extremities person Respiration - General Respiration Rate SpO2 (%) (B/min) 20 100 Final Case Assessment Cardiovascular HR NIBP Chest Pain 100 186/99 0 Edema Present Skin color Skin None Normal Warm Dry Circulatory - Right Pulses Dorsalis Pedis Femoral 1 2 Scale (0,1,2,3,4,d) Circulatory - Left Pulses Dorsalis Pedis Femoral 1 2 Scale (0,1,2,3,4,d) Circulatory - Lower Extremities Color Lower Right Color Lower Left Normal Normal Neurological State Oriented to time-place- Alert Moves all extremities person Respiration - General Respiration Rate SpO2 (%) (B/min) 20 100 Chronological Log Time Study Chronological Log 9:27:57 Patient arrived via Bed. 9:27:58 Patient Name, D.O.B, / Armband Verified By R.N. 9:30:13 Consent signed by the physician and the patient and verified by the [facility] staff. 9:30:14 Pre-op and post- op instructions given; patient acknowledges understanding of instructions. 9:30:14 Verbal Stimulation=2 Physical Stimulation=2 Airway=2 Respiration=2 TOTAL=8. (0=absent, 1=li mited, 2=present) 9:30:18 Patient has been NPO for More than 6Hrs. 9:30:19 Skin Breakdown- wound on right foot 9:30:19 Patient Warmer Placed on the Table. 9:30:22 Sam Prominences Protected 9:30:23 A # 20 IV was noted in the Antecubital (right). Grade = 0 9:30:24 Patient arrived on IV Solutions in Right Antecubital via Peripheral IV. Pump/Drip Flow usin g NaCl .9. 9:30:25 History and physical on the chart or being dictated. Assessment: Initial Case, HC=919 BPM, SROJ=125/99 mmhg, Chest Pain=0, Edema=None, Color=Normal, Skin = Warm, Dry Right Pulses: Yunior Ped=1, Femoral=2 Left Pulses: Yunior Ped=1, Femoral=2 9:30:26 Lower Right Extremities: Color=Normal Lower Left Extremities: Color=Normal Neurological: State=Alert, Ox3, PATIÑO Respiration: Resp=20 B/min, LuO7=142 % Vitals capture started with the following parameters, Patient=Adult, Interval=5 min, Initial Pr kacavm=255 mmHg, 9:31:57 Deflation Rate=5 mmHg, Cuff placed on Left Arm 9:32:37 HR=99 bpm, DWTC=444/99 mmhg, AlD2=665.0 %, Resp=0 B/min, Pain=0, Matthias=10, Rueda=2 9:35:04 Bilateral groins prepped with 2% chlorhexidine, and draped after a 3 minute waiting time. 9:37:40 HR=99 bpm, TNFI=952/101 mmhg, NgW5=488.0 %, Resp=9 B/min, Pain=0, Matthias=10, Rueda=2 9:38:33 MD arrived. 9:41:36 Reference ECG taken 9:42:39 HR=99 bpm, OCRD=675/106 mmhg, CiH9=138.0 %, Resp=15 B/min, Pain=0, Matthias=10, Rueda=2 9:42:49 Pressure channel 1 zeroed. 9:47:40 CM=619 bpm, HVKG=225/102 mmhg, GuR3=816.0 %, Resp=12 B/min, Pain=0, Matthias=10, Rueda=2 9:50:20 Starting a new IV 9:52:39 HR=99 bpm, DFXF=786/101 mmhg, PzJ5=348.0 %, Resp=24 B/min, Pain=0, Matthias=10, Rueda=2 9:57:40 HR=98 bpm, IFJP=116/98 mmhg, UhE6=272.0 %, Resp=23 B/min, Pain=0, Matthias=10, Rueda=2 9:58:17 A # 22 IV was noted in the Hand (right). Grade = 0 Time Out. Correct patient, correct procedure, correct physician, power injector not loaded with contrast with surgical 9:59:38 team present. Time Out Concurred by MD and individual staff in procedure. 9:59:54 Case Start 10:00:17 50 mcg FENTANYL given in lab by Karen Klein RN in Right Hand via Peripheral IV. Ordered by Brendon Diaz 10:02:39 HR=97 bpm, TDPI=844/117 mmhg, VzW0=293.0 %, Resp=12 B/min, Pain=0, Matthias=10, Rueda=2 10:06:39 Access site was Right Femoral Artery. A INTRODUCER SET, MICROPUNCTURE STIFF FR 5 was advanced into the Fem Art (right) using the Perc utaneous 10:07:05 technique. A SHEATH, FR5 TERUMO (10CM) FR 5 was exchanged in the Fem Art (right). This was necessary in or braden to 10:07:12 accomodate a larger catheter. 10:07:42 HR=97 bpm, WAIB=686/103 mmhg, GzS0=982.0 %, Resp=15 B/min, Pain=0, Matthias=10, Rueda=2 10:08:43 Access site was Right Femoral Vein. 10:08:50 A SHEATH, FR7 TERUMO (10CM) FR 7 was advanced into the Fem Vein (right) using the Percutane ous technique. 10:11:26 A SWAN PHILIPPE CATHETER FR 7 was inserted via Fem Vein (right) 10:12:43 FT=812 bpm, OPOP=015/109 mmhg, LgR7=648.0 %, Resp=17 B/min, Pain=0, Matthias=10, Rueda=2 Recorded Pressure: PCW, HR=99, Condition=Condition 1 10:14:55 (Pulmonary Capillary Wedge) PCW 29/28/28 10:15:46 Saturation: Site=PA (Pulmonary Artery) , O2=76.5 %, Hgb=11.7 gm/dl, Condition=Condition 1. Used in calculation. Recorded Pressure: MPA, HR=98, Condition=Condition 1 10:16:47 (Main Pulmonary Artery) MPA 47/26/37 10:17:15 Saturation: Site=FA (Femoral Artery) , O2=95.5 %, Hgb=11.7 gm/dl, Condition=Condition 1. Us ed in calculation. 10:17:40 HR=98 bpm, CDVU=442/105 mmhg, HuI9=752.0 %, Resp=16 B/min, Pain=0, Matthias=10, Rueda=2 Recorded Pressure: RV, HR=98, Condition=Condition 1 10:17:46 (Right Ventricle) RV 47/6/11 Recorded Pressure: RA, HR=98, Condition=Condition 1 10:18:10 (Right Atrium) RA 12/ 10:18:37 [place] Philippe Catheter Removed 10 mg HYDRALAZINE given in lab by Karen Klein, RN in Right Hand via Peripheral IV. Ordered Brendon Sharma 10:19:15 G. A JR 4.0 DXTERITY CATHETER FR 5 was advanced over a wire. OMNIPAQUE, 350 MG, 150ML 150ML was us ed for 10:19:33 injections. Recorded Pressure: LV, HR=96, Condition=Condition 1 10:20:37 (Left Ventricle) LV 184/15/23 Recorded Pressure: LV, Ao, HR=96, Condition=Condition 1 10:20:49 (Left Ventricle) LV 184/15/23, (Aorta) Ao 188/94/132 10:21:34 The RCA was injected and visualized at various angles. OMNIPAQUE, 350 MG, 150ML 150ML used . 10:22:00 Catheter was removed A JL 4.0 DXTERITY CATHETER FR 5 was advanced over a wire. OMNIPAQUE, 350 MG, 150ML 150ML was us ed for 10:22:13 injections. 10:22:42 HR=97 bpm, KTNM=370/97 mmhg, TcH8=553.0 %, Resp=17 B/min, Pain=0, Matthias=10, Rueda=2 10:24:32 The LCA was injected and visualized at various angles. OMNIPAQUE, 350 MG, 150ML 150ML used . 10:25:53 Catheter was removed 10:26:43 Case End Assessment: Final Case, DT=882 BPM, OKWE=472/99 mmhg, Chest Pain=0, Edema=None, Color=Normal, S kin = Warm, Dry Right Pulses: Yunior Ped=1, Femoral=2 Left Pulses: Yunior Ped=1, Femoral=2 10:27:01 Lower Right Extremities: Color=Normal Lower Left Extremities: Color=Normal Neurological: State=Alert, Ox3, PATIÑO Respiration: Resp=20 B/min, CcT3=846 % 10:27:09 Catheter(s) removed without difficulty 10:27:13 Sheath(s) left in place, will be removed in Holding Area 10:27:14 Sterile dressing applied to site 10:27:14 No case complications noted. 10:27:15 Cine recording checked. 10:27:18 Bedside Report will be given. 10:27:22 A Left and Right Heart Cath was performed. 10:27:41 HR=99 bpm, WTDY=475/98 mmhg, HcW9=876.0 %, Resp=17 B/min, Pain=0, Matthias=10, Rueda=2 10:32:16 Vitals capture stopped. 10:34:31 Patient moved to stretcher End Study - Contrast Media Used In Study Contrast Total Opened (mL) Total Used (mL) Total Wasted (mL) Omnipaque 60 60 0 End Study - Maximum Contrast Load Max Contrast Load (mL) 51.1 End Study - Radiation Exposure Fluoro Time (minutes) 4.7 End Study - Patient Disposition Complications Transferred To Interventional Outcome No Telemetry Bed No attempt made
[2017-08-06] MEDS ORDERED: ONDANSETRON HCL 4 MG/2 ML VIAL IV PUSH PRN (10:45)
[2017-08-06] MEDS ORDERED: ATROPINE SULFATE 1 MG/ML VIAL IV PUSH PRN (10:45)
[2017-08-06] MEDS ORDERED: MISC INFORMATION XX ONE (10:45)
[2017-08-06] MEDS ORDERED: SODIUM CHLOR 0.9% 250 ML INJ 250 ML IV PRN (10:45)
[2017-08-06] MEDS ORDERED: hydrALAZINE HCL 20 MG/ML VIAL IV PUSH PRN (10:45)
--- NOTE | 2017-08-06 11:34 | MA ---
cc: Brendon Diaz DO DATE: 08/06/2017 DATE OF PROCEDURE: 08/06/2017. PROCEDURE: Left heart catheterization, right heart catheterization, coronary angiogram. PREPROCEDURE DIAGNOSIS: Abnormal stress test, for renal transplant. POSTPROCEDURE DIAGNOSIS: Minimal coronary artery disease, mild to moderate pulmonary hypertension (type 2 due to elevated left-sided filling pressures), elevated left ventricular end-diastolic pressure. MEDICATIONS: 1. Fentanyl 50 mcg. 2. Hydralazine 10 mg. CONTRAST USED: 60 mL. FLUOROSCOPY: 4.7 minutes. MODERATE SEDATION: 0 minutes. ESTIMATED BLOOD LOSS: 10 mL. PROCEDURAL SUMMARY: Soni Olvera is a pleasant 26-year-old female, whom I see in the office and was planning to undergo renal transplant. She underwent stress testing and this was abnormal and so she was recommended cardiac catheterization. Risks, benefits and alternatives were explained to her and she consented to such. She was brought to the lab and prepped in the usual sterile fashion. The right femoral artery was accessed using a modified Seldinger technique with a micropuncture and placement of a 5-Venezuelan sheath. Right femoral vein was accessed using a modified Seldinger technique and placement of a 7-Venezuelan sheath. Both were easily aspirated and flushed. A Buckley-Bobo catheter was advanced to a wedge position and oxygen saturations as well as pressures were recorded in a standard fashion on pullback throughout the heart. Buckley-Bobo catheter was removed. A JR4 was advanced over a J-wire to the ascending aorta across and the aortic valve for measurement of left ventricular pressure. This was pulled back across the aortic valve showing no significant gradient of aortic stenosis. JR4 was used for selective angiography of the right coronary artery system. This was exchanged out for a JL4 which was used for selective angiography of the left coronary artery system. JL4 was removed over a J-wire. Sheaths were sutured in place with a plan to remove in our holding area. The patient left the laboratory worker cardiovascularly stable. FINDINGS: LEFT MAIN: Normal-sized vessel with no significant disease. It bifurcates into an LAD and circumflex. LAD: Normal-sized vessel with no significant disease. It gives off 2 major diagonals. LEFT CIRCUMFLEX: Normal-sized vessel with mild luminal irregularities. It gives off 3 obtuse marginals with no significant disease. RCA: Normal-sized vessel with no significant disease. It is a dominant vessel and gives off a PDA as well as a PLV with no significant disease. HEMODYNAMICS: RA 9. RV 47/6. RVEDP 11. PA 47/26, mean PA 37. Wedge 28. Cardiac output 6.6. Cardiac index 4.1. LVEDP 23. IMPRESSIONS: 1. Minimal coronary artery disease by cardiac catheterization. 2. Mild to moderate pulmonary hypertension (type 2). 3. Elevated LVEDP. 4. Hypertension. RECOMMENDATIONS: 1. Ms. Olvera appears to have no significant coronary artery disease. 2. She will be referred back to Dr. Cao for consideration of renal transplant. 3. Overall, she needs better blood pressure control as she does have elevated left and right-sided heart pressures. Thank you for allowing me to see Soni Olvera. If there are any questions, please do not hesitate to call. DO ORESTES Nichols/REILLY , 10:51 AM , 11:33 AM
[2017-08-06] MEDS ORDERED: LOW DOSE INSULIN NOVOLIN REGULAR SUPPLEMENTAL SCALE SQ SCH (12:00)
--- NOTE | 2017-08-06 13:06 | EKG ---
Date Performed: 08/06/2017 Time Performed: 08:44:16 PTAGE: 26 years EKG: Sinus rhythm . Normal ECG PREVIOUS TRACING : 06/15/2017 12.13 DOCTOR: Abdulkadir Williamson Interpretating Date/Time 08/06/2017 13:03:29
[2017-08-06] MEDS ORDERED: oxyCODONE/ACETAMINOPHEN 5 MG/325 MG TAB PO ONE (13:45)
== END 2017-08-06 16:37 | disposition home or self-care (01) ==
LOC: HDOC 07:41 → HDIC 07:42 → HDOC 16:37
PROVIDERS: ATTEND Nuclear Medicine Nuclear Cardiology
DX: I25.10 Atherosclerotic heart disease of native coronary artery without angina pectoris (principal); I10 Essential (primary) hypertension; I27.20 Pulmonary hypertension, unspecified; E11.9 Type 2 diabetes mellitus without complications; Z79.4 Long term (current) use of insulin; Z94.0 Kidney transplant status
CPT/HCPCS: 80048; 82810; 84702; 85025; 85610; 85730; 93005; 93456; C1893; J0360; J1644; J2250; J3010; Q9967

== ENCOUNTER 2017-08-06 18:13 | Emergency (ER) | payer MEDICARE, OTHER ==
[~2017-08-06 18:13] MED LIST changes: +LOSA25TA PO
== END 2017-08-06 21:24 | disposition left against medical advice (07) ==
LOC: NED 18:13
DX: Z03.89 Encounter for observation for other suspected diseases and conditions ruled out (principal)
CPT/HCPCS: 99281

== ENCOUNTER 2017-09-24 03:38 | Emergency (ER) | payer MEDICARE, OTHER ==
[~2017-09-24 03:38] MED LIST changes: -ACCUMIS19; -HUMALOG SQ; -LABE200T2 PO; -NOVOLOGP2 SQ; -ONETOUCH ULTRAULTRA; -ONETTES4; -PROM25TA10 PO
[2017-09-24 03:41] VITALS: BP 212/91; PULSE 105; RESP 25; TEMP 97.6; O2SAT 89
--- NOTE | 2017-09-24 04:18 | PD ---
HPI Chief Complaint: Respiratory Symptoms Time Seen by Provider: 03:47 Travel History International Travel<30 days: No Contact w/Intl Traveler<30days: No Traveled to known affect area: No History of Present Illness HPI The patient is a 26 year old female who presents to the [facility] emergency department with a history of shortness of breath that began prior to arrival. The patient reports that she feels like she is fluid overloaded. She reports that she drank too much fluids yesterday. She reports that she is a chronic renal failure patient on hemodialysis. She receives hemodialysis at [facility] 5 days a week. Her last dialysis session was yesterday. 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 She reports that since developing the shortness of breath she has had intermittent coughing , nausea, and central chest pressure. The patient reports that she does produce some urine. She reports that her chief financial officer is Dr. Tan. The patient arrived with O2 saturations on room air of 89%. The patient was immediately placed on 2 L nasal cannula O2 and her oxygenation improved. Upon my arrival to the room, the patient immediately stated that she needed hemodialysis. She explained that if this was not can happen quickly, she would leave AMA. She reports that she has a scheduled seat at the [facility] hemodialysis center at 7:30 AM today. Review of systems otherwise, the patient denies having any known recent fevers, nasal congestion, sore throat, neck pain , abdominal pain, diarrhea, or neurologic symptoms. [facility] Past Medical History Narrative Medical The patient's past medical history is significant for chronic renal failure on hemodialysis since December 2016, history of anemia, gastroparesis, hypertension, diabetes mellitus. Blood Disorders: No Cancer: No Cardiac Catheterization: Yes (angioplasty 05/22) Cardiovascular Problems: Yes (SYNCOPE, PALPITATIONS) Diabetes: Yes Patient Takes Glucophage: No Dialysis: Yes (hemodialysis ) Diminished Hearing: No Endocrine: Yes Gastrointestinal Disorders: No Genitourinary: No Hypertension: Yes Immune Disorder: No Musculoskeletal: No Neurologic: No Psychiatric: No Respiratory: No Thyroid Disease: Yes Influenza Vaccination: No ?: Not LMP: irregular : 1 Para: 0 Miscarriage: 1 Past Surgical History Narrative Surgical The patient's past surgical history is significant for an AV fistula placement in the left upper extremity Other Surgery: Yes (fistula placement) Social History Alcohol Use: No Tobacco Use: No Substance Use: No Allergies-Medications (Allergen,Severity, Reaction): Coded Allergies: No Known Allergies (Verified Allergy, Unknown, 09/24/17) Reported Meds & Prescriptions Reported Meds & Active Scripts Active Zofran Odt (Ondansetron Odt) 4 Mg Tab 4 Mg SL Q6HR PRN Labetalol (Labetalol HCl) 100 Mg Tab 200 Mg PO Q12HR Amlodipine (Amlodipine Besylate) 10 Mg Tab 10 Mg PO DAILY Reported Losartan (Losartan Potassium) 25 Mg Tab Unknown Dose PO DAILY Renvela (Sevelamer Carbonate) 800 Mg Tab 800 Mg PO TID Levemir Inj (Insulin Detemir) 1,000 unit/ 10 ML Vial Units SQ Do not mix with any other Insulin. Nephro-Fausto (B-Complex W/ C & Folic Acid) 1 Tab 1 Tab PO DAILY Hydralazine HCl 25 Mg Tablet 25 Mg PO TID Metoclopramide (Metoclopramide HCl) 5 Mg Tab 5 Mg PO TID Review of Systems Except as stated in HPI: all other systems reviewed are Neg General / Constitutional: No: Fever Eyes: No: Visual changes HENT: No: Headaches Cardiovascular: Positive: Chest Pain or Discomfort, Dyspnea on exertion Respiratory: Positive: Cough, Shortness of Breath Gastrointestinal: Positive: Nausea, No: Abdominal Pain Genitourinary: No: Dysuria Musculoskeletal: No: Pain Skin: No Rash Neurologic: No: Weakness Psychiatric: No: Depression Endocrine: No: Polydipsia Hematologic/Lymphatic: No: Easy Bruising Physical Exam Narrative General: The patient is well-developed well-nourished female, no acute distress. Head and Neck exam: Head is normocephalic atraumatic. Eyes: EOMI, pupils are equal round and reactive to light. Nose: Midline septum with pink mucous membranes Mouth: Dentition unremarkable. Moist mucus membranes. Posterior oropharynx is not erythematous. No tonsillar hypertrophy. Uvula midline. Airway patent. Neck: No palpable lymphadenopathy. No nuchal rigidity. No thyromegaly. Cardiovascular: Sinus tachycardia and a low 100 without murmurs, gallops, or rubs. No pulse deficit to the extremities on simultaneous auscultation and palpation of her radial artery. Lungs: Crackles are audible in bilateral lung velarde, no rhonchi, no wheezes. No accessory muscle use noted. No tripoding. No paroxysmal abdominal breathing. Abdomen: Soft, without tenderness to palpation in all 4 quadrants of the abdomen. No guarding, rebound, or rigidity. Normal bowel sounds are audible. No tenderness on palpation of McBurney's point. Extremities: No clubbing, cyanosis, or edema. 2+ pulses in all 4 extremities. The patient has an AV fistula in the left upper extremity, medial aspect that is palpated and has a palpable thrill noted. No overlying erythema or drainage is noted. Back: No costovertebral angle tenderness to palpation. Neurologic Exam: Grossly nonfocal. Skin Exam: No rash noted. Intact skin that is warm and dry. Data Data Last Documented VS Vital Signs Date Time Temp Pulse Resp B/P (MAP) Pulse Ox O2 Delivery O2 Flow Rate FiO2 09/24/17 04:47 94 Nasal Cannula 3.00 09/24/17 03:53 100 09/24/17 03:41 97.6 25 212/91 (131) Orders Orders Electrocardiogram (09/24/17 04:06) Complete Blood Count With Diff (09/24/17 04:06) Comprehensive Metabolic Panel (09/24/17 04:06) Prothrombin Time / Inr (Pt) (09/24/17 04:06) Act Partial Throm Time (Ptt) (09/24/17 04:06) Magnesium (Mg) (09/24/17 04:06) Chest, Single Ap (09/24/17 04:06) Iv Access Insert/Monitor (09/24/17 04:06) Ecg Monitoring (09/24/17 04:06) Oximetry (09/24/17 04:06) Furosemide Inj (Lasix Inj) (09/24/17 05:00) Labs Laboratory Tests Test 09/24/17 04:30 White Blood Count 11.7 TH/MM3 Red Blood Count 3.30 MIL/MM3 Hemoglobin 10.2 GM/DL Hematocrit 30.8 % Mean Corpuscular Volume 93.4 FL Mean Corpuscular Hemoglobin 30.8 PG Mean Corpuscular Hemoglobin Concent 33.0 % Red Cell Distribution Width 16.0 % Platelet Count 85 TH/MM3 Mean Platelet Volume 8.9 FL Neutrophils (%) (Auto) 80.4 % Lymphocytes (%) (Auto) 13.5 % Monocytes (%) (Auto) 4.1 % Eosinophils (%) (Auto) 1.5 % Basophils (%) (Auto) 0.5 % Neutrophils # (Auto) 9.4 TH/MM3 Lymphocytes # (Auto) 1.6 TH/MM3 Monocytes # (Auto) 0.5 TH/MM3 Eosinophils # (Auto) 0.2 TH/MM3 Basophils # (Auto) 0.1 TH/MM3 CBC Comment AUTO DIFF Differential Comment AUTO DIFF CONFIRMED Platelet Estimate LOW Platelet Morphology Comment NORMAL Prothrombin Time 10.7 SEC Prothromb Time International Ratio 1.1 RATIO Activated Partial Thromboplast Time 22.0 SEC MDM Medical Decision Making Medical Screen Exam Complete: Yes Emergency Medical Condition: Yes Medical Record Reviewed: Yes Differential Diagnosis Pulmonary edema from increased fluid intake in a patient on hemodialysis, versus bilateral pneumonia, versus congestive heart failure Narrative Course During the course of the patient's emergency department visit, the patient's history, examination, and differential diagnosis were reviewed with the patient and the patient's family at the bedside. The patient was placed on a juvenile court judge with oximetry and frequent blood pressure monitoring. The patient had IV access obtained and blood work sent for analysis. The patient on my arrival to the room reports that she does not intend to stay like she gets hemodialysis quickly. I explained that we would initially need to do laboratory studies and a chest x-ray prior to me being able to converse intelligibly with the patient' s chief financial officer. The patient reports that she does produce some urine. The patient in the meantime was continued on 2 L nasal cannula O2 and given Lasix 40 mg IV. Unfortunately, the patient's laboratory studies were re-collected. When the patient's nurse went into obtain the recall act, the patient then decided that she was leaving AGAINST MEDICAL ADVICE. The patient's family is at the bedside and I explained to the patient and the patient's family that her respiratory distress could worsen. I explained that we can provide oxygen while we get hemodialysis scheduled. In spite of this, the patient intends to leave. She is made aware that she could develop respiratory failure which could lead to . The patient's EKG done on arrival showed a sinus tachycardia rate of 105, QRS duration 90 ms, QTC [address] segment elevation. No peak T waves noted. The patient's laboratory studies were reviewed and remarkable for a white count of 11.7, hemoglobin 10.2, platelets 85 with 80.4 neutrophils, chemistry panel was re-collected, however the patient refused. PT 10.7, PTT 22 Radiology studies were reviewed and remarkable for a chest x-ray that showed new bilateral alveolar infiltrates most consistent with pulmonary edema. AMA: The risks of leaving against medical advice without further evaluation treatment were discussed with the patient. The patient is alert and oriented with a GCS of 15. The patient expressed understanding of the ill effects that could occur with leaving AGAINST MEDICAL ADVICE. These risks include cardiac dysfunction, cardiac dysrhythmia, respiratory failure, or . The patient indicated understanding of these risks and appeared to have the capacity to make this decision. The patient expressed that she would be able to go to [facility] for her 7:30 AM hemodialysis chair session today. Referrals: Kiara Tan MD Patient Instructions: General Instructions, Pulmonary Edema (ED) Disposition: 07 AGAINST MEDICAL ADVICE Condition: Serious Opal Erazo MD September 24, 2017 04:18
[2017-09-24 04:29] VITALS: O2SAT 94
--- NOTE | 2017-09-24 04:39 | RADRPT ---
EXAM DATE: 09/24/2017 4:24 AM EDT AGE/SEX: 26 years / Female INDICATIONS: Shortness of breath. CLINICAL DATA: This is the patient's initial encounter. Patient reports that signs and symptoms have been present for 1 day and indicates a pain score of 0/10. MEDICAL/SURGICAL HISTORY: Hypertension. Angioplasty. COMPARISON: [facility] [place]ST SINGLE AP, 06/15/2017. . FINDINGS: A single AP erect view of the chest was obtained and demonstrates new alveolar infiltrates throughout both lungs. This is greatest in the lung bases and perihilar regions. The heart size is at the upper limits of normal. There is no effusion. CONCLUSION: New bilateral alveolar infiltrates most characteristic of pulmonary edema. This may be noncardiogenic . A community-acquired pneumonia could have this appearance. Electronically signed by: Wilber Renteria MD 09/24/2017 4:38 AM EDT
[2017-09-24 04:54] LABS: AUTOMATED NEUTROPHIL # 9.4 TH/MM3 (1.8-7.7); BASOPHIL # 0.1 TH/MM3 (0-0.2); BASOPHIL % 0.5 % (0.0-2.0); EOSINOPHIL # 0.2 TH/MM3 (0-0.4); EOSINOPHIL % 1.5 % (0.0-4.0); HEMATOCRIT 30.8 % (35.0-46.0); HEMOGLOBIN 10.2 GM/DL (11.6-15.3); LYMPH % 13.5 % (9.0-44.0); LYMPHOCYTE # 1.6 TH/MM3 (1.0-4.8); MEAN CELL VOLUME 93.4 FL (80.0-100.0); MEAN CORPUSCULAR HEMOGLOBIN 30.8 PG (27.0-34.0); MEAN PLATELET VOLUME 8.9 FL (7.0-11.0); MONO % 4.1 % (0.0-8.0); MONOCYTE # 0.5 TH/MM3 (0-0.9); NEUT % 80.4 % (16.0-70.0); PLATELET COUNT 85 TH/MM3 (150-450); WHITE BLOOD COUNT 11.7 TH/MM3 (4.0-11.0)
[2017-09-24] MEDS ORDERED: FUROSEMIDE 40 MG/4 ML VIAL IV PUSH ONE (05:00)
[2017-09-24 05:04] LABS: INTERNATIONAL NORMALIZED RATIO 1.1 RATIO; PROTHROMBIN TIME - PATIENT 10.7 SEC (9.8-11.6)
--- NOTE | 2017-09-24 14:35 | EKG ---
Date Performed: 09/24/2017 Time Performed: 04:37:42 PTAGE: 26 years EKG: SINUS TACHYCARDIA NONSPECIFIC ST & T-WAVE ABNORMALITY ABNORMAL RHYTHM ECG Compared to prior electrocardiogram, Nonspecific T wave changes are now present . PREVIOUS TRACING : 08/06/2017 08.44 DOCTOR: Aníbal Monterroso Interpretating Date/Time 09/24/2017 14:33:40
== END 2017-09-24 05:18 | disposition left against medical advice (07) ==
LOC: NEPE 03:38
DX: R06.02 Shortness of breath (principal); I12.0 Hypertensive chronic kidney disease with stage 5 chronic kidney disease or end stage renal disease; E11.22 Type 2 diabetes mellitus with diabetic chronic kidney disease; N18.6 End stage renal disease; Z99.2 Dependence on renal dialysis; Z79.4 Long term (current) use of insulin
CPT/HCPCS: 71045; 85025; 85610; 85730; 93005; 96374; 99285; J1940

== ENCOUNTER 2018-04-03 06:41 | Observation (INO) ==
--- NOTE | 2018-04-03 07:20 | ED ---
HPI General Chief complaint: Respiratory Symptoms Stated complaint: Sob Time Seen by Provider: 04/03/18 07:01 Source: patient Mode of arrival: ambulatory Limitations: no limitations History of Present Illness HPI narrative: 27yo F with PMH of ESRD on HD, HTN, type 1 DM here with c/o sob since 7pm last night. Said she feels like there is fluid in her lungs and she does not think that she can make it to her HD appointment at [facility] at 4:30pm today. Last HD was 2 days ago. Also with midsternal pressure like chest pain since 9pm that is nonradiating. Moderate severity. +Nausea and vomiting. Denies any fever, cough, abdominal pain, focal weakness or numbness. Related Data Home Medications Medication Instructions Recorded Confirmed B complex-vitamin C-folic acid 1 tab PO DAILY 04/03/18 04/03/18 [Nephro-Fausto] amlodipine 10 mg PO BID 04/03/18 04/03/18 hydralazine 10 mg PO TID 04/03/18 04/03/18 labetalol 200 mg PO BID 04/03/18 04/03/18 Allergies Allergy/AdvReac Type Severity Reaction Status Date / Time No Known Allergies Allergy Unknown Uncoded 09/24/17 03:41 Review of Systems ROS: all other systems reviewed are negative [facility] Family History Family History Mother Thyroid disease CVA (cerebral vascular accident) Diabetes Social History Social History Substance History: No History of Abuse Second Hand Smoke Exposure: No Smoking Status: Never smoker Tobacco Type: Cigars Cigarettes Per Day: 0 Years Smoked: 10 Pack-Years: 0.00 years: 5 Number of Cigars Per Week: 7 How Often Do You Have a Drink Containing Alcohol: Never Hx Recent Travel: No Recent Travel in [facility] within the Last 8 Weeks: No Recent Out of Country Travel within the Last 8 Weeks: No Immunization History Tetanus Immunization: Unsure Exam Narrative Exam Narrative: GENERAL: 27yo F in mild distrss. SKIN: Focused skin assessment warm/dry. HEAD: Atraumatic. Normocephalic. EYES: Pupils equal and round. No scleral icterus. No injection or drainage. ENT: No nasal bleeding or discharge. Mucous membranes pink and moist. NECK: Trachea midline. No JVD. CARDIOVASCULAR: Regular rate and rhythm. No murmur appreciated. RESPIRATORY: No accessory muscle use. Decreased breath sounds in bilateral lower lung velarde. GASTROINTESTINAL: Abdomen soft, non-tender, nondistended. +Catheter for peritoneal dialysis. MUSCULOSKELETAL: No obvious deformities. No clubbing. No cyanosis. No edema. NEUROLOGICAL: Awake and alert. No obvious cranial nerve deficits. Motor grossly within normal limits. Normal speech. PSYCHIATRIC: Appropriate mood and affect; insight and judgment normal. Course Initial Documented Vital Signs Temperature 98.0 F 04/03/18 06:41 Pulse Rate 110 H 04/03/18 06:41 Respiratory Rate 18 04/03/18 06:41 Blood Pressure 191/94 H 04/03/18 06:41 Pulse Oximetry 96 04/03/18 06:41 Last Documented Vital Signs Temperature 99.3 F 04/03/18 19:00 Pulse Rate 105 H 04/03/18 19:00 Respiratory Rate 16 04/03/18 19:00 Blood Pressure 152/73 H 04/03/18 19:00 Pulse Oximetry 95 04/03/18 19:00 Medical Decision Making MDM Narrative Medical decision making narrative: 27yo F with ESRD, HD, HTN here with sob and chest pain since yesterday. Labs reviewed, no leukocytosis. H/H low but at baseline. Mild hyperkalemia at 5.6. BUN/creatinine at 41/7.56. Glucose 318. Will give 8 units of regular insulin. CO2 normal. Normal anion gap. Troponin negative. BNP elevated at 1095. CXR showed mild vascular congestion and interstitial prominence. Pt's installation drafter is Dr. Anthony. Discussed with Dr. Andersen and he will arrange for hemodialysis in the hospital. Pt is persistently tachycardic so did obtain D-dimer which is elevated at 2.78. CTA performed to r /o PE since pt is getting hemodialysis today and is negative for PE. Pt's chest pain improved with sublingual nitro but is still not resolved. She is hypertensive and chest pain may be secondary to HTN but has risk factors for CAD as well so will admit for fluid overload, and serial EKG and cardiac enzymes for chest pain. Medical Screen Exam Complete: Yes Emergency Medical Condition: Yes Differential Diagnosis Differential Diagnosis: Pleural effusion vs. pulmonary edema vs. pneumonia vs. PE vs. ACS Lab Data Result diagrams: 04/03/18 07:27 04/03/18 07:27 Lab Results 11/30/18 11/30/18 11/30/18 Range/Units 07:27 07:27 07:27 WBC 7.8 (4.0-11.0) th/mm3 RBC 3.64 L (4.00-5.30) mil/mm3 Hgb 10.9 L (11.6-15.3) gm/dL Hct 34.2 L (35.0-46.0) % MCV 94.0 (80.0-100.0) fL MCH 30.0 (27.0-34.0) pg MCHC 31.9 L (32.0-36.0) % RDW 18.1 H (11.6-17.2) % Plt Count 189 (150-450) th/mm3 MPV 8.9 (7.0-11.0) fL Neut % (Auto) 76.6 H (16.0-70.0) % Lymph % (Auto) 14.0 (9.0-44.0) % [place] % (Auto) 4.5 (0.0-8.0) % Eos % (Auto) 4.0 (0.0-4.0) % Baso % (Auto) 0.9 (0.0-2.0) % Neut # (Auto) 6.0 (1.8-7.7) th/mm3 Lymph # (Auto) 1.1 (1.0-4.8) th/mm3 [place] # (Auto) 0.4 (0.0-0.9) th/mm3 Eos # (Auto) 0.3 (0.0-0.4) th/mm3 Baso # (Auto) 0.1 (0.0-0.2) th/mm3 WBC Differential . Differential Comment Auto diff final PT 10.4 (9.8-11.6) sec INR 1.0 Ratio APTT 25.9 (23.4-31.7) sec D-Dimer Quant (PE/DVT) 2.78 H (0.00-0.50) mg/L FEU Sodium 137 (136-145) meq/L Potassium 5.6 H (3.5-5.1) meq/L Chloride 101 (98-107) meq/L Carbon Dioxide 28.0 (21.0-32.0) meq/L Anion Gap 8 (5-15) meq/L BUN 41 H (7-18) mg/dL Creatinine 7.56 H (0.50-1.00) mg/dL Estimated GFR 8 L (>89) mL/min POC Glucose (68-110) mg/dl Random Glucose 318 H (74-106) mg/dL Calcium 8.2 L (8.5-10.1) mg/dL Troponin I Less than 0.02 L (0.02-0.05) ng/mL B-Natriuretic Peptide (0-100) pg/mL Beta HCG, Qual 1.6 (0-5) mIU/mL 04/03/18 04/03/18 04/03/18 Range/Units 07:27 11:54 17:12 WBC (4.0-11.0) th/mm3 RBC (4.00-5.30) mil/mm3 Hgb (11.6-15.3) gm/dL Hct (35.0-46.0) % MCV (80.0-100.0) fL MCH (27.0-34.0) pg MCHC (32.0-36.0) % RDW (11.6-17.2) % Plt Count (150-450) th/mm3 MPV (7.0-11.0) fL Neut % (Auto) (16.0-70.0) % Lymph % (Auto) (9.0-44.0) % [place] % (Auto) (0.0-8.0) % Eos % (Auto) (0.0-4.0) % Baso % (Auto) (0.0-2.0) % Neut # (Auto) (1.8-7.7) th/mm3 Lymph # (Auto) (1.0-4.8) th/mm3 [place] # (Auto) (0.0-0.9) th/mm3 Eos # (Auto) (0.0-0.4) th/mm3 Baso # (Auto) (0.0-0.2) th/mm3 WBC Differential Differential Comment PT (9.8-11.6) sec INR Ratio APTT (23.4-31.7) sec D-Dimer Quant (PE/DVT) (0.00-0.50) mg/L FEU Sodium (136-145) meq/L Potassium (3.5-5.1) meq/L Chloride (98-107) meq/L Carbon Dioxide (21.0-32.0) meq/L Anion Gap (5-15) meq/L BUN (7-18) mg/dL Creatinine (0.50-1.00) mg/dL Estimated GFR (>89) mL/min POC Glucose 102 37 L* (68-110) mg/dl Random Glucose (74-106) mg/dL Calcium (8.5-10.1) mg/dL Troponin I (0.02-0.05) ng/mL B-Natriuretic Peptide 1095 H (0-100) pg/mL Beta HCG, Qual (0-5) mIU/mL 04/03/18 04/03/18 Range/Units 17:30 17:55 WBC (4.0-11.0) th/mm3 RBC (4.00-5.30) mil/mm3 Hgb (11.6-15.3) gm/dL Hct (35.0-46.0) % MCV (80.0-100.0) fL MCH (27.0-34.0) pg MCHC (32.0-36.0) % RDW (11.6-17.2) % Plt Count (150-450) th/mm3 MPV (7.0-11.0) fL Neut % (Auto) (16.0-70.0) % Lymph % (Auto) (9.0-44.0) % [place] % (Auto) (0.0-8.0) % Eos % (Auto) (0.0-4.0) % Baso % (Auto) (0.0-2.0) % Neut # (Auto) (1.8-7.7) th/mm3 Lymph # (Auto) (1.0-4.8) th/mm3 [place] # (Auto) (0.0-0.9) th/mm3 Eos # (Auto) (0.0-0.4) th/mm3 Baso # (Auto) (0.0-0.2) th/mm3 WBC Differential Differential Comment PT (9.8-11.6) sec INR Ratio APTT (23.4-31.7) sec D-Dimer Quant (PE/DVT) (0.00-0.50) mg/L FEU Sodium (136-145) meq/L Potassium (3.5-5.1) meq/L Chloride (98-107) meq/L Carbon Dioxide (21.0-32.0) meq/L Anion Gap (5-15) meq/L BUN (7-18) mg/dL Creatinine (0.50-1.00) mg/dL Estimated GFR (>89) mL/min POC Glucose 39 L* 133 H (68-110) mg/dl Random Glucose (74-106) mg/dL Calcium (8.5-10.1) mg/dL Troponin I (0.02-0.05) ng/mL B-Natriuretic Peptide (0-100) pg/mL Beta HCG, Qual (0-5) mIU/mL Imaging Data Radiologist's impression: Chest X-Ray 04/03/18 07:15 CONCLUSION: Likely early fluid overload Chest CTA 04/03/18 08:12 CONCLUSION: This study is negative for pulmonary embolism. ECG Data EKG Prior to Arrival: No Attestation: I personally reviewed and interpreted this ECG as follows: Interpretation: Sinus tachycardia at 109bpm. Normal axis. No significant ST elevation or depression. Discharge Plan Discharge Disposition Patient Disposition: Against Medical Advice Discharge Order Discharge Orders: AMA Discharge (Routine); Ordered 04/03/18 Ordered By: Rama Barnett Physicians Team ED Provider: Elizabeth Vital Primary Care Provider: Wilber Garcia Attending Provider: Nataly Prieto Other Providers: Shad Sparks Status ED Status: Left Department Discharge Information Discharge Date/Time: 04/03/18 17:12
[2018-04-03 07:44] LABS: Baso # (Auto) 0.1 th/mm3 (0.0-0.2); Baso % (Auto) 0.9 % (0.0-2.0); Eos # (Auto) 0.3 th/mm3 (0.0-0.4); Hematocrit 34.2 % (35.0-46.0); Hemoglobin 10.9 gm/dL (11.6-15.3); Lymph # (Auto) 1.1 th/mm3 (1.0-4.8); Mean Corpuscular HGB Conc 31.9 % (32.0-36.0); Mean Platelet Volume 8.9 fL (7.0-11.0); Mono # (Auto) 0.4 th/mm3 (0.0-0.9); Mono % (Auto) 4.5 % (0.0-8.0); Neut % (Auto) 76.6 % (16.0-70.0); Platelet Count 189 th/mm3 (150-450); Red Blood Count 3.64 mil/mm3 (4.00-5.30); Red Cell Distribution Width 18.1 % (11.6-17.2); White Blood Count 7.8 th/mm3 (4.0-11.0)
--- NOTE | 2018-04-03 07:46 | XR ---
EXAM DATE: 04/03/2018 7:42 AM EST AGE/SEX: 27 years / Female INDICATIONS: Dyspnea. Short of breath. Chest pain. CLINICAL DATA: This is the patient's initial encounter. Patient reports that signs and symptoms have been present for 2 days and indicates a pain score of 10/10. MEDICAL/SURGICAL HISTORY: . Hypertension. Angioplasty. . [place] [facility] [place]. . FINDINGS: Mild vascular congestion and diffuse interstitial prominence. Borderline heart size. CONCLUSION: Likely early fluid overload Electronically signed by: Ulises Parra MD 04/03/2018 7:45 AM EST
[2018-04-03 07:57] LABS: Activated Partial Thrombo Time 25.9 sec (23.4-31.7); Prothrombin Time 10.4 sec (9.8-11.6)
[2018-04-03 08:02] LABS: D-Dimer 2.78 mg/L FEU (0.00-0.50)
[2018-04-03 08:03] LABS: Anion Gap 8 meq/L (5-15); Blood Urea Nitrogen 41 mg/dL (7-18); Calcium 8.2 mg/dL (8.5-10.1); Chloride 101 meq/L (98-107); Glomerular Filtration Rate 8 mL/min (>89); Glucose,Random 318 mg/dL (74-106); Potassium 5.6 meq/L (3.5-5.1); Sodium 137 meq/L (136-145)
--- NOTE | 2018-04-03 08:44 | CT ---
EXAM DATE: 04/03/2018 8:39 AM EST AGE/SEX: 27 years / Female INDICATIONS: Patient complains of short of breath. CLINICAL DATA: This is the patient's initial encounter. Patient reports that signs and symptoms have been present for 1 day and indicates a pain score of 4/10. MEDICAL/SURGICAL HISTORY: Diabetes. Renal disease, end stage. Hypertension. . peritoneal dialysis RADIATION DOSE: 10.79 CTDI (mGy) COMPARISON: [facility], CHEST 1V SINGLE AP, 04/03/2018. . TECHNIQUE: Volumetric scanning was performed using a multi-row detector CT scanner during bolus infu gama of 75 ml Omnipaque 350 (iohexol) nonionic water-soluble contrast as a single exam dose. The claudine a was post processed with a variety of visualization algorithms including full volume maximum intensi ty projection and sliding thin slab reformation. Using automated exposure control and adjustment of the mA and/or kV according to patient size, radiation dose was kept as low as reasonably achievable t o obtain optimal diagnostic quality images. DICOM format image data is available electronically for review and comparison. FINDINGS: Pulmonary Arteries: No filling defects are seen in the pulmonary arteries out to the subsegmental ve ssels. The left and right pulmonary arteries are normal in diameter. Lung: Fairly diffuse bilateral interstitial and alveolar parenchymal opacity with a vague nodular co mponent. Effusion: Small bilateral Mediastinum: No evidence of mediastinal or hilar adenopathy. Other: The axilla is unremarkable. Edematous changes in the soft tissues diffusely CONCLUSION: This study is negative for pulmonary embolism. Electronically signed by: Ulises Parra MD 04/03/2018 8:42 AM EST
[2018-04-03] MEDS ORDERED: Bisacodyl 10 MG Supp RECTAL PRN (09:06)
[2018-04-03] MEDS ORDERED: Acetaminophen 325 MG Tablet PO PRN ×2 (09:06→09:58)
--- NOTE | 2018-04-03 09:09 | P.HP ---
History of Present Illness Service: Hospitalist Primary Care Physician: Wilber Garcia MD, R2 Chief Complaint: Shortness of breath History of Present Illness: Ms. Olvera'kyleigh-year-old -[place] female with a history of ESRD, type 1 diabetes mellitus, hypertension who presents to the emergency department due to shortness of breath. She was planning to do peritoneal dialysis. However since she had some complications, she went back to home hemodialysis. She did not do dialysis yesterday. She usually performs home hemodialysis 5 days a week. She became short of breath since 7 PM on 04/02/2018. Patient denies any chest pain, fever or chills. Imaging studies show pulmonary edema. Nephrology was consulted and dialysis is being planned for today. Patient denies any chest pain, fever, chills. No changes in bowel or bladder habits. Past medical history: ESRD, type 1 DM Past surgical history: Fistula and PD cath placement Social history: does not smoke or drink alcohol Family history: Mother with HTN Review of Systems All other systems reviewed negative except as stated in HPI PMFSH - History History Provided By: Patient - Medical History Medical History: Medical History (Last Reviewed 04/04/18 @ 00:34 by Nataly Prieto DO) Diabetes ESRD (end stage renal disease) Hemodialysis access, AV graft Hypertension Peritoneal dialysis status - Family History Family History: Family History (Last Updated 11/13/17 @ 14:26 by Zaheer Cao MD) Mother Thyroid disease CVA (cerebral vascular accident) Diabetes - Tobacco History Second Hand Smoke Exposure: No Tobacco Use In Past 30 Days: No Smoking Status: Never smoker Tobacco Type: Cigars Cigarettes Per Day: 0 Years Smoked: 10 years: 5 Number of Cigars Per Week: 7 - Alcohol History How Often Do You Have a Drink Containing Alcohol: Never - Substance Use History Substance History: No History of Abuse - Travel History History of Recent Travel: No Recent Travel in the [place] Within the Last 8 Weeks: No Recent Travel Out of the Country Within the Last 8 Weeks: No - Immunization History Tetanus Immunization: Unsure Medications and Allergies Active Medications: Active Medications Acetaminophen (Tylenol) 650 mg PO Q4H PRN PRN Reason: Headache, fever, pain 1-4 Al Hydroxide/Mg Hydroxide (Milk Of Magnesia Liq) 30 ml PO Q12H PRN PRN Reason: Mild Constipation Bisacodyl (Dulcolax Supp) 10 mg RECTAL DAILY PRN PRN Reason: SEVERE CONSITIPATION Lactulose (Lactulose Liq) 30 ml PO DAILY PRN PRN Reason: SEVERE CONSITIPATION Ondansetron HCl (Zofran Inj) 4 mg IV.PUSH Q6H PRN PRN Reason: NAUSEA OR VOMITING Sennosides (Senokot) 17.2 mg PO Q12H PRN PRN Reason: Moderate Constipation Sodium Chloride (Ns Flush) 2 ml IV.FLUSH BID CAM Sodium Chloride (Ns Flush) 2 ml IV.FLUSH PRN PRN PRN Reason: FLUSH AFTER USING IV ACCESS Allergies Allergy/AdvReac Type Severity Reaction Status Date / Time No Known Allergies Allergy Unknown Uncoded 09/24/17 03:41 Home Medications Medication Instructions Recorded Confirmed Type B complex-vitamin C-folic acid 1 tab PO DAILY 04/03/18 04/03/18 History [Nephro-Fausto] amlodipine 10 mg PO BID 04/03/18 04/03/18 History hydralazine 10 mg PO TID 04/03/18 04/03/18 History labetalol 200 mg PO BID 04/03/18 04/03/18 History Exam Vital signs: Vital Signs 04/03/18 06:41 04/03/18 06:48 04/03/18 07:32 Temperature 98.0 F Pulse Rate 110 H 109 H Respiratory Rate 18 18 Blood Pressure 191/94 H 195/94 H Pulse Oximetry 96 95 98 04/03/18 07:51 04/03/18 08:46 04/03/18 09:01 Temperature Pulse Rate 107 H 107 H Respiratory Rate 18 18 17 Blood Pressure 194/93 H 199/92 H Pulse Oximetry 95 97 Intake & Output 04/02/18 04/03/18 04/03/18 18:59 06:59 18:59 Weight 61.235 kg Narrative: GENERAL: This is a well-nourished, well-developed patient, in no apparent distress. SKIN: No rashes, ecchymoses or lesions. Warm and dry. HEAD: Atraumatic. Normocephalic. No temporal or scalp tenderness. EYES: Pupils equal round and reactive. No injection or drainage. ENT: Nose without bleeding, purulent drainage or septal hematoma. Airway patent. NECK: Trachea midline. No lymphadenopathy. Supple, nontender, no meningeal signs. CARDIOVASCULAR: Regular rate and rhythm without murmurs, gallops, or rubs. No JVD. RESPIRATORY: Clear to auscultation. Breath sounds equal bilaterally. No wheezes , rales, or rhonchi. GASTROINTESTINAL: Abdomen soft, non-tender, nondistended. No guarding. MUSCULOSKELETAL: Extremities without clubbing, cyanosis, or edema. NEUROLOGICAL: Awake and alert. Cranial nerves II through XII intact. No focal neurological deficits. Normal speech. Results - Labs CBC & Chem 7: 04/03/18 07:27 04/03/18 07:27 Labs: Laboratory Results - last 24 hr 04/03/18 04/03/18 04/03/18 07:27 07:27 07:27 WBC 7.8 RBC 3.64 L Hgb 10.9 L Hct 34.2 L MCV 94.0 MCH 30.0 MCHC 31.9 L RDW 18.1 H Plt Count 189 MPV 8.9 Neut % (Auto) 76.6 H Lymph % (Auto) 14.0 Archuleta % (Auto) 4.5 Eos % (Auto) 4.0 Baso % (Auto) 0.9 Neut # (Auto) 6.0 Lymph # (Auto) 1.1 Archuleta # (Auto) 0.4 Eos # (Auto) 0.3 Baso # (Auto) 0.1 WBC Differential . Differential Comment Auto diff final PT 10.4 INR 1.0 APTT 25.9 D-Dimer Quant (PE/DVT) 2.78 H Sodium 137 Potassium 5.6 H Chloride 101 Carbon Dioxide 28.0 Anion Gap 8 BUN 41 H Creatinine 7.56 H Estimated GFR 8 L Random Glucose 318 H Calcium 8.2 L Troponin I Less than 0.02 L B-Natriuretic Peptide Beta HCG, Qual 1.6 04/03/18 07:27 WBC RBC Hgb Hct MCV MCH MCHC RDW Plt Count MPV Neut % (Auto) Lymph % (Auto) Archuleta % (Auto) Eos % (Auto) Baso % (Auto) Neut # (Auto) Lymph # (Auto) Archuleta # (Auto) Eos # (Auto) Baso # (Auto) WBC Differential Differential Comment PT INR APTT D-Dimer Quant (PE/DVT) Sodium Potassium Chloride Carbon Dioxide Anion Gap BUN Creatinine Estimated GFR Random Glucose Calcium Troponin I B-Natriuretic Peptide 1095 H Beta HCG, Qual - Imaging Impressions Chest X-Ray 04/03/18 07:15 CONCLUSION: Likely early fluid overload Chest CTA 04/03/18 08:12 CONCLUSION: This study is negative for pulmonary embolism. Caprini VTE Risk Assessment Caprini VTE Risk Assessment: No/Low Risk (score <= 1) Caprini Risk Assessment Model: Point Value = 1 Point Value = 2 Point Value = 3 Point Value = 5 Age 41-60 Minor surgery BMI > 25 kg/m2 Swollen legs Varicose veins or History of unexplained or recurrent spontaneous Oral contraceptives or hormone replacement Sepsis (< 1 month) Serious lung disease, including pneumonia (< 1 month) Abnormal pulmonary function Acute myocardial infarction Congestive heart failure (< 1 month) History of inflammatory bowel disease Medical patient at bed rest Age 61-74 Arthroscopic surgery Major open surgery (> 45 min) Laparoscopic surgery (> 45 min) Malignancy Confined to bed (> 72 hours) Immobilizing plaster cast Central venous access Age >= 75 History of VTE Family history of VTE Factor V Leiden Prothrombin [id number] Lupus anticoagulant Anticardiolipin antibodies Elevated serum homocysteine Heparin-induced thrombocytopenia Other congenital or acquired thrombophilia Stroke (< 1 month) Elective arthroplasty Hip, pelvis, or leg fracture Acute spinal cord injury (< 1 month) Prophylaxis Regimen: Total Risk Factor Score Risk Level Prophylaxis Regimen 0-1 Low Early ambulation 2 Moderate Order ONE of the following: *Sequential Compression Device (SCD) *Heparin 5000 units SQ BID 3-4 Higher Order ONE of the following medications: *Heparin 5000 units SQ TID *Enoxaparin/Lovenox 40 mg SQ daily (WT < 150 kg, CrCl > 30 mL/min) *Enoxaparin/Lovenox 30 mg SQ daily (WT < 150 kg, CrCl > 10-29 mL/min) *Enoxaparin/Lovenox 30 mg SQ BID (WT < 150 kg, CrCl > 30 mL/min) AND/OR *Sequential Compression Device (SCD) 5 or more Highest Order ONE of the following medications: *Heparin 5000 units SQ TID (Preferred with Epidurals) *Enoxaparin/Lovenox 40 mg SQ daily (WT < 150 kg, CrCl > 30 mL/min) *Enoxaparin/Lovenox 30 mg SQ daily (WT < 150 kg, CrCl > 10-29 mL/min) *Enoxaparin/Lovenox 30 mg SQ BID (WT < 150 kg, CrCl > 30 mL/min) AND *Sequential Compression Device (SCD) Assessment and Plan - Plan Ms. Olvera's-year-old -[place] female with a history of ESRD, type 1 diabetes mellitus, hypertension who presents to the emergency department due to shortness of breath. She was planning to do peritoneal dialysis. However since she had some complications, she went back to home hemodialysis. She did not do dialysis yesterday. She usually performs home hemodialysis 5 days a week. She became short of breath since 7 PM on 04/02/2018. Patient denies any chest pain, fever or chills. Imaging studies show pulmonary edema. Acute pulmonary edema Dyspnea Likely due to lack of adequate dialysis. Nephrology consulted and patient will undergo hemodialysis today. Hypertensive urgency Blood pressure in the 190-200 range systolic. We will give 1 dose of labetalol 20 mg IV. Blood pressure will likely improve after dialysis. ESRD Diabetes mellitus type 1 Consulted nephrology for dialysis. Continue insulin using patient's own insulin pump. Full code. SCDs. Discharge plan: If hemodynamically stable, after dialysis patient can be discharged. Would like to see better blood pressure as well.
[2018-04-03] MEDS ORDERED: Labetalol HCl Inj 100 MG/20 ML Vial IV.PUSH ONE (09:47)
[2018-04-03] MEDS ORDERED: Heparin 10,000 UNITS/10 ML Vial (for IV use) OTHER PRN ×2 (09:58)
[2018-04-03] MEDS ORDERED: Gelatin 12 MM/7 MM Topical Foam TOPICAL PRN (09:58)
[2018-04-03] MEDS ORDERED: Sod Chloride 0.9% Inj 1,000 ML OTHER PRN ×2 (09:58)
[2018-04-03] MEDS ORDERED: Sod Chloride 0.9% Inj 1,000 ML IV.CONT PRN (09:58)
[2018-04-03] MEDS ORDERED: Albumin Human 25% Inj 100 ML IV.SIG PRN (09:58)
--- NOTE | 2018-04-03 14:31 | P.CONNP ---
<Cassidy Brooke - Last Filed: 04/03/18 14:12> History of Present Illness Reason for Consult: ESRD on dialysis Primary Care Provider: Wilber Garcia MD, R2 History of Present Illness: Patient is a 27 year old female who presented to the ED today with shortness of breath that started last night. Patient denies chest pain. Patient has a medical history of ESRD on dialysis, Type I Diabetes, Hypertension. Patient stated she gets home dialysis but is waiting for a new dialysis machine so is getting dialysis at [facility] in [place]. Patient has an AVF in the left arm. Patient stated she has also done peritoneal dialysis but didn't like it. Patient's chest CTA was negative for pulmonary embolism. Patient's chest X-ray showed early fluid overload. Patient denies tobacco, alcohol, drug use. Patient to be dialyzed today. Review of Systems All other systems reviewed negative except as stated in HPI PMFSH - History History Provided By: Patient - Medical History Medical History: Medical History (Last Updated 04/03/18 @ 06:57 by Ulises Prather) Diabetes ESRD (end stage renal disease) Hemodialysis access, AV graft Hypertension Peritoneal dialysis status - Family History Family History: Family History (Last Updated 11/13/17 @ 14:26 by Zaheer Cao MD) Mother Thyroid disease CVA (cerebral vascular accident) Diabetes - Tobacco History Second Hand Smoke Exposure: No Tobacco Use In Past 30 Days: No Smoking Status: Never smoker Tobacco Type: Cigars Cigarettes Per Day: 0 Years Smoked: 10 years: 5 Number of Cigars Per Week: 7 - Alcohol History How Often Do You Have a Drink Containing Alcohol: Never - Substance Use History Substance History: No History of Abuse - Travel History History of Recent Travel: No Recent Travel in the [place] Within the Last 8 Weeks: No Recent Travel Out of the Country Within the Last 8 Weeks: No - Immunization History Tetanus Immunization: Unsure Medications and Allergies Allergies Allergy/AdvReac Type Severity Reaction Status Date / Time No Known Allergies Allergy Unknown Uncoded 09/24/17 03:41 Home Medications Medication Instructions Recorded Confirmed Type B complex-vitamin C-folic acid 1 tab PO DAILY 04/03/18 04/03/18 History [Nephro-Fausto] amlodipine 10 mg PO BID 04/03/18 04/03/18 History hydralazine 10 mg PO TID 04/03/18 04/03/18 History labetalol 200 mg PO BID 04/03/18 04/03/18 History Active Medications: Active Medications Acetaminophen (Tylenol) 650 mg PO Q4H PRN PRN Reason: Headache, fever, pain 1-4 Acetaminophen (Tylenol) 650 mg PO UNSCH PRN PRN Reason: SEE LABEL COMMENTS Al Hydroxide/Mg Hydroxide (Milk Of Magnesia Liq) 30 ml PO Q12H PRN PRN Reason: Mild Constipation Bisacodyl (Dulcolax Supp) 10 mg RECTAL DAILY PRN PRN Reason: SEVERE CONSITIPATION Clonidine HCl (Catapres) 0.1 mg PO UNSCH PRN PRN Reason: SEE LABEL COMMENTS Diphenhydramine HCl (Benadryl) 25 mg PO UNSCH PRN PRN Reason: SEE LABEL COMMENTS Epoetin Perico (Epogen Inj) 10,000 unit IV.PUSH UNSCH PRN PRN Reason: SEE LABEL COMMENTS Gelatin (Gelfoam 12 Mm/7 Mm Topical) 1 foam TOPICAL PRN PRN PRN Reason: help stop bleeding from site Gentamicin Sulfate (Gentamicin Inj) 20 mg OTHER WITH DIALYSIS PRN PRN Reason: Dwell Gentamycin Lock Heparin Sodium (Porcine) (Heparin Inj) 1,000 units OTHER WITH DIALYSIS PRN PRN Reason: Dwell Heparin to Fill Catheter Heparin Sodium (Porcine) (Heparin Inj) 8,000 units OTHER WITH DIALYSIS PRN PRN Reason: for machine prime Albumin Human (Flexbumin 25% Inj) 100 mls @ 60 mls/hr IV.SIG WITH DIALYSIS PRN PRN Reason: hypotension / volume replace Sodium Chloride (Ns Inj) 1,000 mls @ 0 mls/hr OTHER .Q0M PRN PRN Reason: for prime and rinse back Sodium Chloride (Ns Inj) 1,000 mls @ 0 mls/hr IV.CONT .Q0M PRN PRN Reason: hypotension / volume replace Sodium Chloride (Ns Inj) 1,000 mls @ 200 mls/hr OTHER .Q5H PRN PRN Reason: for dialyzer flush PRN Lactulose (Lactulose Liq) 30 ml PO DAILY PRN PRN Reason: SEVERE CONSITIPATION Mannitol (Mannitol Inj) 12.5 gm IV.PUSH UNSCH PRN PRN Reason: hypotension / volume replace Nitroglycerin (Nitrostat Sl) 0.4 mg SL Q5M PRN PRN Reason: CHEST PAIN Ondansetron HCl (Zofran Inj) 4 mg IV.PUSH Q6H PRN PRN Reason: NAUSEA OR VOMITING Ondansetron HCl (Zofran Inj) 4 mg IV.PUSH UNSCH PRN PRN Reason: NAUSEA OR VOMITING Sennosides (Senokot) 17.2 mg PO Q12H PRN PRN Reason: Moderate Constipation Sodium Chloride (Ns Flush) 2 ml IV.FLUSH BID CAM Sodium Chloride (Ns Flush) 2 ml IV.FLUSH PRN PRN PRN Reason: FLUSH AFTER USING IV ACCESS Sodium Chloride (Ns Flush) 5 ml IV.FLUSH PRN PRN PRN Reason: flush each lumen during HD Exam Vital signs: Vital Signs 04/03/18 06:41 04/03/18 06:48 04/03/18 07:32 Temperature 98.0 F Pulse Rate 110 H 109 H Respiratory Rate 18 18 Blood Pressure 191/94 H 195/94 H Pulse Oximetry 96 95 98 04/03/18 07:51 04/03/18 08:46 04/03/18 09:01 Temperature Pulse Rate 107 H 107 H Respiratory Rate 18 18 17 Blood Pressure 194/93 H 199/92 H Pulse Oximetry 95 97 04/03/18 09:27 04/03/18 09:29 04/03/18 10:08 Temperature Pulse Rate 109 H 109 H Respiratory Rate 19 19 Blood Pressure 192/86 H 201/96 H Pulse Oximetry 95 95 98 04/03/18 10:09 04/03/18 10:12 04/03/18 11:56 Temperature Pulse Rate 99 H 108 H Respiratory Rate 16 17 Blood Pressure 185/86 H 191/92 H Pulse Oximetry 95 97 100 Intake & Output 04/02/18 04/03/18 04/03/18 18:59 06:59 18:59 Weight 61.235 kg - Constitutional no acute distress - Routine HEENT Exam Head: Present: normocephalic Eye: Present: EOMI, PERRL ENT: Present: mucous membranes moist - Routine Neck Exam Present: trachea midline. Absent: tracheal deviation - Routine Respiratory Exam Present: CTA bilaterally. Absent: respiratory distress - Routine Cardiovascular Exam Present: RRR. Absent: murmur - Routine Abdominal Exam Present: soft, normoactive bowel sounds - Routine Extremities Exam Present: pulses intact, normal capillary refill, AV fistula. Absent: edema Comments: AVF in the left arm - Routine Neurological Exam Present: alert, oriented X3 Results - Lab Results 04/03/18 07:27 04/03/18 07:27 Most recent lab results Calcium 8.2 mg/dL (8.5-10.1) L 04/03/18 07:27 Assessment and Plan - Assessment (1) ESRD (end stage renal disease) on dialysis Code(s): N18.6 - End stage renal disease; Z99.2 - Dependence on renal dialysis Status: Acute Plan: Patient to be dialyzed today. Monitor fluid and electrolytes. Avoid Gadolinium. Protect left arm from IV or BP measurements, AVF is present. Monitor phosphorus intermittently. (2) HTN (hypertension) Code(s): I10 - Essential (primary) hypertension Status: Acute Plan: Monitor BP. Patient hypertensive. Clonidine PRN. (3) Diabetes 1.5, managed as type 1 Code(s): E10.9 - Type 1 diabetes mellitus without complications Status: Acute Plan: Continue insulin coverage to maintain blood glucose between 140 and 180. (4) Anemia Code(s): D64.9 - Anemia, unspecified Status: Acute Plan: Hgb 10.9. Patient gets Epogen with dialysis. <Shad Sparks - Last Filed: 04/03/18 16:16> History of Present Illness Primary Care Provider: Wilber Garcia MD, R2 [facility] - Medical History Medical History: Medical History (Last Updated 04/03/18 @ 06:57 by Ulises Prather) Diabetes ESRD (end stage renal disease) Hemodialysis access, AV graft Hypertension Peritoneal dialysis status - Family History Family History: Family History (Last Updated 11/13/17 @ 14:26 by Zaheer Cao MD) Mother Thyroid disease CVA (cerebral vascular accident) Diabetes Medications and Allergies Active Medications: Active Medications Acetaminophen (Tylenol) 650 mg PO Q4H PRN PRN Reason: Headache, fever, pain 1-4 Acetaminophen (Tylenol) 650 mg PO UNSCH PRN PRN Reason: SEE LABEL COMMENTS Al Hydroxide/Mg Hydroxide (Milk Of Apollo Liq) 30 ml PO Q12H PRN PRN Reason: Mild Constipation Bisacodyl (Dulcolax Supp) 10 mg RECTAL DAILY PRN PRN Reason: SEVERE CONSITIPATION Clonidine HCl (Catapres) 0.1 mg PO UNSCH PRN PRN Reason: SEE LABEL COMMENTS Diphenhydramine HCl (Benadryl) 25 mg PO UNSCH PRN PRN Reason: SEE LABEL COMMENTS Epoetin Perico (Epogen Inj) 10,000 unit IV.PUSH UNSCH PRN PRN Reason: SEE LABEL COMMENTS Last Admin: 04/03/18 15:05 Dose: 10,000 unit Gelatin (Gelfoam 12 Mm/7 Mm Topical) 1 foam TOPICAL PRN PRN PRN Reason: help stop bleeding from site Gentamicin Sulfate (Gentamicin Inj) 20 mg OTHER WITH DIALYSIS PRN PRN Reason: Dwell Gentamycin Lock Heparin Sodium (Porcine) (Heparin Inj) 1,000 units OTHER WITH DIALYSIS PRN PRN Reason: Dwell Heparin to Fill Catheter Heparin Sodium (Porcine) (Heparin Inj) 8,000 units OTHER WITH DIALYSIS PRN PRN Reason: for machine prime Albumin Human (Flexbumin 25% Inj) 100 mls @ 60 mls/hr IV.SIG WITH DIALYSIS PRN PRN Reason: hypotension / volume replace Sodium Chloride (Ns Inj) 1,000 mls @ 0 mls/hr OTHER .Q0M PRN PRN Reason: for prime and rinse back Sodium Chloride (Ns Inj) 1,000 mls @ 0 mls/hr IV.CONT .Q0M PRN PRN Reason: hypotension / volume replace Sodium Chloride (Ns Inj) 1,000 mls @ 200 mls/hr OTHER .Q5H PRN PRN Reason: for dialyzer flush PRN Lactulose (Lactulose Liq) 30 ml PO DAILY PRN PRN Reason: SEVERE CONSITIPATION Mannitol (Mannitol Inj) 12.5 gm IV.PUSH UNSCH PRN PRN Reason: hypotension / volume replace Nitroglycerin (Nitrostat Sl) 0.4 mg SL Q5M PRN PRN Reason: CHEST PAIN Ondansetron HCl (Zofran Inj) 4 mg IV.PUSH Q6H PRN PRN Reason: NAUSEA OR VOMITING Ondansetron HCl (Zofran Inj) 4 mg IV.PUSH UNSCH PRN PRN Reason: NAUSEA OR VOMITING Sennosides (Senokot) 17.2 mg PO Q12H PRN PRN Reason: Moderate Constipation Sodium Chloride (Ns Flush) 2 ml IV.FLUSH BID CAM Sodium Chloride (Ns Flush) 2 ml IV.FLUSH PRN PRN PRN Reason: FLUSH AFTER USING IV ACCESS Sodium Chloride (Ns Flush) 5 ml IV.FLUSH PRN PRN PRN Reason: flush each lumen during HD Exam Vital signs: Vital Signs 04/03/18 06:41 04/03/18 06:48 04/03/18 07:32 Temperature 98.0 F Pulse Rate 110 H 109 H Respiratory Rate 18 18 Blood Pressure 191/94 H 195/94 H Pulse Oximetry 96 95 98 04/03/18 07:51 04/03/18 08:46 04/03/18 09:01 Temperature Pulse Rate 107 H 107 H Respiratory Rate 18 18 17 Blood Pressure 194/93 H 199/92 H Pulse Oximetry 95 97 04/03/18 09:27 04/03/18 09:29 04/03/18 10:08 Temperature Pulse Rate 109 H 109 H Respiratory Rate 19 19 Blood Pressure 192/86 H 201/96 H Pulse Oximetry 95 95 98 04/03/18 10:09 04/03/18 10:12 04/03/18 11:56 Temperature Pulse Rate 99 H 108 H Respiratory Rate 16 17 Blood Pressure 185/86 H 191/92 H Pulse Oximetry 95 97 100 Intake & Output 04/02/18 04/03/18 04/03/18 18:59 06:59 18:59 Weight 61.235 kg Results - Lab Results 04/03/18 07:27 04/03/18 07:27 Most recent lab results Calcium 8.2 mg/dL (8.5-10.1) L 04/03/18 07:27 Assessment and Plan - Assessment (1) ESRD (end stage renal disease) on dialysis Code(s): N18.6 - End stage renal disease; Z99.2 - Dependence on renal dialysis Status: Acute (2) HTN (hypertension) Code(s): I10 - Essential (primary) hypertension Status: Acute (3) Diabetes 1.5, managed as type 1 Code(s): E10.9 - Type 1 diabetes mellitus without complications Status: Acute (4) Anemia Code(s): D64.9 - Anemia, unspecified Status: Acute - Attending Attestation patient was seen and examined. Seen during dialysis. Fluid removal with dialysis. Possible discharge after dialysis. Patient apparently will be switching home HD.
[2018-04-03] MEDS ORDERED: Dextrose 50% in Water Syringe 50 ML ONE ×2 (17:32→17:35)
[2018-04-03 19:25] VITALS: BP 152/73; PULSE 105; RESP 16; TEMP 99.3; O2SAT 95
--- NOTE | 2018-04-04 14:09 | ECG ---
Date Performed: 04/03/2018 Time Performed: 06:57:32 PTAGE: 27 years EKG: ATRIAL FLUTTER/TACHYCARDIA WITH RAPID VENTRICULAR RESPONSE ABNORMAL RHYTHM ECG PREVIOUS TRACING :09/24/2017 @04.37 Compared to previous tracing, atrial flutter is new. Clinic al correlation is recommended DOCTOR: Jasvir Reddy Interpretating Date/Time 04/04/2018 14:08:42
== END 2018-04-03 19:50 | disposition left against medical advice (07) ==
LOC: NEPC 06:41 → NEDA 06:41 → NEPHCDU 19:21
PROVIDERS: ADMIT Hospitalist; ATTEND Hospitalist
DX: N18.6 End stage renal disease; Z99.2 Dependence on renal dialysis; D63.1 Anemia in chronic kidney disease; Z79.4 Long term (current) use of insulin; E10.22 Type 1 diabetes mellitus with diabetic chronic kidney disease; Z82.49 Family history of ischemic heart disease and other diseases of the circulatory system; I16.0 Hypertensive urgency; J81.0 Acute pulmonary edema; I12.0 Hypertensive chronic kidney disease with stage 5 chronic kidney disease or end stage renal disease; Z83.3 Family history of diabetes mellitus; Z82.3 Family history of stroke